=== PATIENT | male | born 1935 | race Caucasian/White ===

== ENCOUNTER 2016-06-26 19:59 | Emergency (ER) | payer MEDICARE ==
[~2016-06-26] VITALS: Ht 177.8 cm; Wt 100.0 kg
[~2016-06-26 19:59] MED LIST: ADLT ASA LOW81 MG PO; ALTOPREV20 MG PO; ARCTIC RUBY OIL PO; AUGMENTIN500TAB PO; CARDURA1 MG PO; CETIRIZ/PSE1 TAB PO; CHOLESTEROL PO; CIPROFLOXACN250 MG PO; CO Q-10100 MG OR; CO Q-10200 M1 PO; COQ10100 MG PO; COUMADIN5 MG OR; COZAAR100 MG PO; COZAAR50 MG PO; DILAUDID 2MG2 MG/TA1 PO; ECOTRIN325 MG OR; FLAXSEED OIL1200 MG PO; FLEXERIL10 MG PO; FLOMAX0.4 M1 PO; FLONASE NASAL50 MCG; FLULAVAL IM; FOLIC ACID400 MC1 PO; GLIPIZIDE ER10 M1 PO; GLIPIZIDE10 MG PO; GLUMETZA1000 MG PO; LORTAB 7.5 PO; MAXZIDE OR; METFORMIN HCL1000 MG PO; METOPROL TAR50 MG OR; MEVACOR20 MG PO; NUCYNTA50 MG OR; OMEGA PO; OMEGA Q PLUS PO; PLAVIX75 MG PO; PRAVACHOL20 MG PO; PREVNAR 13 IM; PROPAFENONE225 MG OR; RESTORIL15 MG PO; TERAZOSIN5 MG PO; TRAMADOL HCL50 MG PO; TRICOR145 MG PO; VITAMIN B-12500 MC1 SL; ZPAK PO; ZYRTEC-D AL1 OR; [UNRECOGNIZED DRUG - OTHER] PO
[2016-06-26] MEDS ORDERED: LASIX 40 MG TAB40 MG PO (21:19)
[2016-06-26] MEDS ORDERED: AUGMENTIN500TAB PO (21:20)
[2016-06-26] MEDS ORDERED: METHYLPRED4 M1 PO (21:20)
[2016-06-26] MEDS ORDERED: GLIPIZIDE10 M2 PO (21:21)
[2016-06-26] MEDS ORDERED: LOPRESSOR 550 MG/TAB PO (21:22)
[2016-06-26] MEDS ORDERED: MICRO-K10 MEQ PO (21:23)
[2016-06-26] MEDS ORDERED: AMANTADINE100 MG PO (21:24)
[2016-06-26 21:32] VITALS: BP 152/74
== END 2016-06-26 21:36 | disposition home or self-care (01) ==
LOC: ED 19:59
DX: K59.00 Constipation, unspecified (principal)

== ENCOUNTER 2016-06-27 14:56 | Observation (INO) | payer OTHER, MEDICARE ==
[~2016-06-27] VITALS: Ht 177.8 cm; Wt 100.9 kg
[~2016-06-27 14:56] MED LIST changes: +AMANTADINE100 MG PO; +GLIPIZIDE10 M2 PO; +LASIX 40 MG TAB40 MG PO; +LOPRESSOR 550 MG/TAB PO; +METHYLPRED4 M1 PO; +MICRO-K10 MEQ PO
[2016-06-27 15:30] LABS: HEMATOCRIT 39.4 % (39.0-50.0); IMMATURE GRANULOCYTES 0.4 % (0.0-1.0); MEAN CELL VOLUME 90.8 fL CALC (80.0-100.0); NEUT# 8.91 thou/uL (1.82-7.42); RED BLOOD COUNT 4.34 mill/uL (4.70-6.10); RED CELL DISTRI WIDTH 12.5 % (11.5-15.5)
[2016-06-27 15:44] LABS: ALBUMIN 4.5 g/dL (3.2-5.0); BILIRUBIN, TOTAL 1.1 mg/dL (0.0-1.4); CALCIUM 9.6 mg/dL (8.4-10.2); CREATININE 2.2 mg/dL (0.7-1.3); POTASSIUM 4.7 mmol/l (3.5-5.1); TOTAL PROTEIN 8.1 g/dL (6.3-8.2)
[2016-06-27 18:20] VITALS: BP 148/83
[2016-06-27 23:34] VITALS: BP 166/70; BP 173/68
[2016-06-28 04:10] VITALS: BP 111/72; BP 128/73
[2016-06-28 05:49] LABS: HEMATOCRIT 39.2 % (39.0-50.0); HEMOGLOBIN 12.6 g/dl (14.0-18.0); IMMATURE GRANULOCYTES 0.7 % (0.0-1.0); MEAN CELL VOLUME 91.4 fL CALC (80.0-100.0); MEAN CORPUSCULAR HGB 29.4 pG CALC (26.0-32.0); MEAN CORPUSCULAR HGB CONC 32.1 g/L CALC (32.0-36.0); NEUT# 6.55 thou/uL (1.82-7.42); RED BLOOD COUNT 4.29 mill/uL (4.70-6.10); RED CELL DISTRI WIDTH 12.7 % (11.5-15.5)
[2016-06-28 06:00] LABS: ALBUMIN 3.8 g/dL (3.2-5.0); BILIRUBIN, TOTAL 0.9 mg/dL (0.0-1.4); CALCIUM 9.3 mg/dL (8.4-10.2); POTASSIUM 4.7 mmol/l (3.5-5.1); TOTAL PROTEIN 6.8 g/dL (6.3-8.2)
[2016-06-28 08:30] VITALS: BP 122/55
[2016-06-28 13:00] VITALS: BP 143/66
[2016-06-28 16:00] VITALS: BP 133/71
[2016-06-28] MEDS ORDERED: LISINOPRIL10 MG PO (17:58)
[2016-06-28] MEDS ORDERED: METOPROL TAR25 MG PO (17:58)
== END 2016-06-28 18:45 | disposition home or self-care (01) | DRG 69 ==
LOC: ENPENDDIS → ED 14:56 → ED-I 16:10 → ED 16:15 → MS2 16:16
PROVIDERS: Emergency Medicine; ADMIT Internal Medicine Geriatric Medicine; ATTEND Internal Medicine Geriatric Medicine
DX: G45.9 Transient cerebral ischemic attack, unspecified (principal); I13.0 Hypertensive heart and chronic kidney disease with heart failure and stage 1 through stage 4 chronic kidney disease, or unspecified chronic kidney disease; E11.22 Type 2 diabetes mellitus with diabetic chronic kidney disease; I50.9 Heart failure, unspecified; E11.69 Type 2 diabetes mellitus with other specified complication; N18.9 Chronic kidney disease, unspecified; I25.10 Atherosclerotic heart disease of native coronary artery without angina pectoris; M19.90 Unspecified osteoarthritis, unspecified site; E78.5 Hyperlipidemia, unspecified; F40.240 Claustrophobia; Z95.1 Presence of aortocoronary bypass graft

== ENCOUNTER 2017-08-29 16:00 | Observation (INO) | payer MEDICARE ==
[~2017-08-29] VITALS: Ht 170.2 cm; Wt 104.8 kg
[~2017-08-29 16:00] MED LIST changes: +LISINOPRIL10 MG PO; +METOPROL TAR25 MG PO
[2017-08-29 17:02] VITALS: BP 137/64
[2017-08-29 17:11] VITALS: BP 138/64
[2017-08-29 18:11] LABS: HEMATOCRIT 35.4 % (39.0-50.0); HEMOGLOBIN 11.3 g/dl (14.0-18.0); IMMATURE GRANULOCYTES 0.3 % (0.0-1.0); MEAN CELL VOLUME 94.4 fL CALC (80.0-100.0); MEAN CORPUSCULAR HGB 30.1 pG CALC (26.0-32.0); MEAN CORPUSCULAR HGB CONC 31.9 g/L CALC (32.0-36.0); NEUT# 3.82 thou/uL (1.82-7.42); RED BLOOD COUNT 3.75 mill/uL (4.70-6.10); RED CELL DISTRI WIDTH 12.9 % (11.5-15.5)
[2017-08-29 18:32] LABS: CREATININE 2.7 mg/dL (0.7-1.3); POTASSIUM 4.6 mmol/l (3.5-5.1)
[2017-08-29 18:40] VITALS: BP 157/84
[2017-08-29 23:44] LABS: URINE BILIRUBIN - DIPSTICK NEGATIVE (NEGATIVE); URINE BLOOD DIPSTICK TRACE-LYSED (NEGATIVE); URINE CLARITY CLEAR; URINE COLOR YELLOW; URINE GLUCOSE - DIPSTICK 100 mg/dL (NEGATIVE); URINE KETONE NEGATIVE (NEGATIVE); URINE LEUK ESTERASE NEGATIVE (NEGATIVE); URINE NITRITE - DIPSTICK NEGATIVE (Negative); URINE PH 6.5 (4.5-8.0); URINE PROTEIN - DIPSTICK TRACE mg/dL (NEG-TRACE)
[2017-08-30] VITALS (7 sets, daily range): BP systolic 118–144; BP diastolic 66–81
[2017-08-30 05:23] LABS: HEMATOCRIT 34.3 % (39.0-50.0); IMMATURE GRANULOCYTES 0.3 % (0.0-1.0); MEAN CORPUSCULAR HGB 30.5 pG CALC (26.0-32.0); MEAN CORPUSCULAR HGB CONC 32.1 g/L CALC (32.0-36.0); NEUT# 3.83 thou/uL (1.82-7.42); RED BLOOD COUNT 3.61 mill/uL (4.70-6.10); RED CELL DISTRI WIDTH 12.8 % (11.5-15.5)
[2017-08-30 05:25] LABS: BILIRUBIN, TOTAL 0.6 mg/dL (0.0-1.4); CREATININE 2.5 mg/dL (0.7-1.3); POTASSIUM 4.6 mmol/l (3.5-5.1); TOTAL PROTEIN 6.2 g/dL (6.3-8.2)
[2017-08-30 05:28] LABS: ALBUMIN 3.4 g/dL (3.2-5.0)
[2017-08-30] MEDS ORDERED: ADULT ASPIRIN E81 MG PO (12:16)
[2017-08-30] MEDS ORDERED: CoQ10 PO (12:27)
[2017-08-30] MEDS ORDERED: TRICOR145 MG PO (12:29)
[2017-08-30] MEDS ORDERED: ATORVASTATIN CA10 MG PO (12:31)
[2017-08-30] MEDS ORDERED: TAMSULOSIN0.4 MG PO (12:34)
[2017-08-30] MEDS ORDERED: PRANDIN1 MG PO (12:36)
[2017-08-30] MEDS ORDERED: JANUVIA100 MG PO (12:39)
[2017-08-30] MEDS ORDERED: ZESTRIL10 M1 PO (12:41)
[2017-08-30 14:20] LABS: CREATININE 2.6 mg/dL (0.7-1.3); POTASSIUM 4.7 mmol/l (3.5-5.1)
[2017-08-30] MEDS ORDERED: LOPRESSOR 550 MG/TAB PO (17:35)
== END 2017-08-30 18:15 | disposition home or self-care (01) ==
LOC: MS2 16:00
PROVIDERS: ADMIT Internal Medicine Geriatric Medicine; ATTEND Internal Medicine Geriatric Medicine
DX: N99.0 Postprocedural (acute) (chronic) kidney failure (principal); N17.9 Acute kidney failure, unspecified; I13.0 Hypertensive heart and chronic kidney disease with heart failure and stage 1 through stage 4 chronic kidney disease, or unspecified chronic kidney disease; I50.9 Heart failure, unspecified; E11.22 Type 2 diabetes mellitus with diabetic chronic kidney disease; N18.9 Chronic kidney disease, unspecified; I25.10 Atherosclerotic heart disease of native coronary artery without angina pectoris; E78.5 Hyperlipidemia, unspecified; F41.9 Anxiety disorder, unspecified; F32.9 Major depressive disorder, single episode, unspecified; M19.90 Unspecified osteoarthritis, unspecified site; E11.69 Type 2 diabetes mellitus with other specified complication; E11.42 Type 2 diabetes mellitus with diabetic polyneuropathy; Y84.0 Cardiac catheterization as the cause of abnormal reaction of the patient, or of later complication, without mention of misadventure at the time of the procedure; Z96.652 Presence of left artificial knee joint; Z95.5 Presence of coronary angioplasty implant and graft; Z95.1 Presence of aortocoronary bypass graft

== ENCOUNTER 2018-01-14 19:00 | Emergency (ER) | payer MEDICARE ==
[~2018-01-14] VITALS: Ht 170.2 cm; Wt 91.8 kg
[~2018-01-14 19:00] MED LIST changes: +ADULT ASPIRIN E81 MG PO; +ATORVASTATIN CA10 MG PO; +CoQ10 PO; +JANUVIA100 MG PO; +PRANDIN1 MG PO; +TAMSULOSIN0.4 MG PO; +ZESTRIL10 M1 PO
[2018-01-14] MEDS ORDERED: LISINOPRIL20 MG PO (19:25)
[2018-01-14 19:57] LABS: ALBUMIN 4.3 g/dL (3.2-5.0); BILIRUBIN, TOTAL 1.1 mg/dL (0.0-1.4); CREATININE 2.5 mg/dL (0.7-1.3); TOTAL PROTEIN 7.9 g/dL (6.3-8.2)
[2018-01-14 19:58] LABS: HEMATOCRIT 38.3 % (39.0-50.0); HEMOGLOBIN 12.3 g/dl (14.0-18.0); IMMATURE GRANULOCYTES 0.6 % (0.0-5.0); MEAN CELL VOLUME 91.8 fL CALC (80.0-100.0); MEAN CORPUSCULAR HGB 29.5 pG CALC (26.0-32.0); MEAN CORPUSCULAR HGB CONC 32.1 g/L CALC (32.0-36.0); NEUT# 4.33 thou/uL (1.82-7.42); RED BLOOD COUNT 4.17 mill/uL (4.70-6.10); RED CELL DISTRI WIDTH 14.3 % (11.5-15.5)
[2018-01-14 21:27] VITALS: BP 119/78
== END 2018-01-14 21:28 | disposition short-term general hospital (02) ==
LOC: ED 19:00
PROVIDERS: Family Medicine
DX: I21.4 Non-ST elevation (NSTEMI) myocardial infarction (principal); R07.9 Chest pain, unspecified; I10 Essential (primary) hypertension; E11.9 Type 2 diabetes mellitus without complications; Z95.0 Presence of cardiac pacemaker; I25.810 Atherosclerosis of coronary artery bypass graft(s) without angina pectoris
CPT/HCPCS: J1650

== ENCOUNTER → 2018-05-29 | Outpatient (REF) | payer MEDICARE ==
[~2018-05-29] MED LIST changes: +ATIVAN1 MG PO; +BRILINTA60 MG PO; +EFFER-K25 MEQ PO; +FUROSEMIDE20 MG PO; +ISOSORBIDE MONO30 MG PO; +K-DUR/KLOR-CON20 MEQ PO; +LISINOPRIL20 MG PO; +METO25TAB PO; +METOLAZONE2.5 MG PO; +TRESIBA FL100 UNIT/M SC; +XARELTO10 MG PO
[2018-05-29 11:15] LABS: HEMATOCRIT 38.4 % (39.0-50.0); HEMOGLOBIN 11.7 g/dl (14.0-18.0); MEAN CELL VOLUME 92.3 fL CALC (80.0-100.0); MEAN CORPUSCULAR HGB 28.1 pG CALC (26.0-32.0); MEAN CORPUSCULAR HGB CONC 30.5 g/L CALC (32.0-36.0); RED BLOOD COUNT 4.16 mill/uL (4.70-6.10); RED CELL DISTRI WIDTH 14.9 % (11.5-15.5)
[2018-05-29 11:40] LABS: ALBUMIN 4.1 g/dL (3.2-5.0); BILIRUBIN, TOTAL 1.4 mg/dL (0.0-1.4); CHOLESTEROL HDL RATIO 4.2 (<4.4 (CALC)); CREATININE 1.7 mg/dL (0.7-1.3); POTASSIUM 4.2 mmol/l (3.5-5.1); TOTAL PROTEIN 7.2 g/dL (6.3-8.2)
[2018-05-29 12:10] LABS: TSH, 3RD GENERATION 1.92 uIU/mL (0.47 - 4.68)
== END | disposition home or self-care (01) ==
LOC: LAB 10:13
PROVIDERS: ATTEND Nurse Practitioner
DX: E11.69 Type 2 diabetes mellitus with other specified complication (principal); E78.2 Mixed hyperlipidemia; I10 Essential (primary) hypertension; N18.9 Chronic kidney disease, unspecified; Z12.5 Encounter for screening for malignant neoplasm of prostate

== ENCOUNTER 2018-05-30 14:00 | Outpatient (RCR) | payer MEDICARE ==
--- NOTE | 2018-05-23 14:23 | NUR ---
S/O: MOLLY ANGULO is a 83 year old Male who presented to cardiac/pulmonary consult. His past medical history and current medications and treatment were discussed. A/P: All medications in patient's chart were viewed. Corrections were needed including adding Tresiba, Metolazone, and Lorazepam to his medication list. Patient has good understanding of prescribed medications. The patient had the following questions or concerns: What can happen if he were to take too much of his diuretic medications The patient indicated that he has experienced the following side effects: None Potential side effects were discussed such as: Dizziness/ Orthostasis, Symptoms of low blood sugar, Symptoms of electrolyte imbalance The patient was instructed to contact pharmacy if he had further questions at a next visit.
== END 2018-05-30 15:00 | disposition home or self-care (01) ==
LOC: CR 14:00
PROVIDERS: ATTEND Internal Medicine
DX: D64.9 Anemia, unspecified (principal); I25.10 Atherosclerotic heart disease of native coronary artery without angina pectoris

== ENCOUNTER 2018-07-14 16:49 | Emergency (ER) | payer MEDICARE ==
[~2018-07-14] VITALS: Ht 177.8 cm; Wt 90.0 kg
[2018-07-14] MEDS ORDERED: MEDDOSEPAK PO (18:11)
[2018-07-14] MEDS ORDERED: PERCOCET 10/31 COMBO PO (18:11)
[2018-07-14 18:25] VITALS: BP 131/74
== END 2018-07-14 18:25 | disposition home or self-care (01) ==
LOC: ED 16:49
DX: M25.531 Pain in right wrist (principal); I11.0 Hypertensive heart disease with heart failure; I50.9 Heart failure, unspecified; I25.10 Atherosclerotic heart disease of native coronary artery without angina pectoris; E11.9 Type 2 diabetes mellitus without complications

== ENCOUNTER 2018-11-20 00:27 | Inpatient (IN) | payer MEDICARE ==
[~2018-11-20] VITALS: Ht 177.8 cm; Wt 99.9 kg
[~2018-11-20 00:27] MED LIST changes: +MEDDOSEPAK PO; -METO25TAB PO; +PERCOCET 10/31 COMBO PO
--- NOTE | 2018-11-20 00:30 | NUR ---
PT WHEELED TO ROOM 9 FOR TRIAGE
--- NOTE | 2018-11-20 00:31 | NUR ---
PT. WITH C/O FEELING LIKE HE HAS A SINUS INFECTION STARTING THIS AM. WITH QUINONEZ AND PRESSURE.
[2018-11-20] MEDS ORDERED: PLAVIX75 MG PO (00:53)
--- NOTE | 2018-11-20 01:25 | NUR ---
PO TYLENOL AND PO MOTRIN FOR TEMP. 101.3 PER .
[2018-11-20 01:35] LABS: HEMATOCRIT 40.4 % (39.0-50.0); HEMOGLOBIN 12.8 g/dl (14.0-18.0); IMMATURE GRANULOCYTES 0.2 % (0.0-5.0); MEAN CELL VOLUME 89.8 fL CALC (80.0-100.0); MEAN CORPUSCULAR HGB 28.4 pG CALC (26.0-32.0); MEAN CORPUSCULAR HGB CONC 31.7 g/L CALC (32.0-36.0); NEUT# 7.7 thou/uL (1.82-7.42); RED BLOOD COUNT 4.5 mill/uL (4.70-6.10); RED CELL DISTRI WIDTH 14.4 % (11.5-15.5); URINE BILIRUBIN - DIPSTICK NEGATIVE (NEGATIVE); URINE BLOOD DIPSTICK SMALL (NEGATIVE); URINE COLOR YELLOW; URINE GLUCOSE - DIPSTICK NEGATIVE (NEGATIVE); URINE KETONE NEGATIVE (NEGATIVE); URINE NITRITE - DIPSTICK NEGATIVE (Negative); URINE PROTEIN - DIPSTICK NEGATIVE (NEG-TRACE); URINE UROBILINOGEN - DIPSTICK 0.2 E.U./dL (0.2)
[2018-11-20 01:45] LABS: URINE LEUK ESTERASE MODERATE (NEGATIVE)
[2018-11-20 01:52] LABS: ALBUMIN 4.5 g/dL (3.2-5.0); BILIRUBIN, TOTAL 2.1 mg/dL (0.0-1.4); CREATININE 1.9 mg/dL (0.7-1.3); POTASSIUM 4.2 mmol/l (3.5-5.1); TOTAL PROTEIN 7.9 g/dL (6.3-8.2)
[2018-11-20 01:55] LABS: URINE RBC 0-2 RBC/hpf (0-5)
[2018-11-20 01:56] LABS: URINE BACTERIA RARE hpf; URINE SQUAMOUS EPITHELIAL CELL RARE EPI/hpf (0-FEW); URINE WBC 20-50 WBC/hpf (0-5)
--- NOTE | 2018-11-20 02:05 | NUR ---
IV ABT. GIVEN PER MD ORDER.
--- NOTE | 2018-11-20 02:22 | NUR ---
IN ROOM TO DISCUSS CLINICAL FINDINGS WITH PT. VERBALIZED UNDERSTANDING.
--- NOTE | 2018-11-20 02:51 | NUR ---
IVF STARTED PER MD ORDER.
--- NOTE | 2018-11-20 03:13 | NUR ---
Admission Note Report Given to: MESERET NÚÑEZ Transported by: Wheelchair X Stretcher Transported with: X Nurse Transporter X Patent IV O2 X Wellness Nurse
--- NOTE | 2018-11-20 03:22 | NUR ---
PT. TO [facility] FLOOR VIA STRETCHER, NO C/O.
[2018-11-20 04:46] VITALS: BP 100/58
--- NOTE | 2018-11-20 05:10 | NUR ---
PATIENT ADMITTED FROM ER VIA STRETCHER WITH ER STAFF IN ATTENDANCE. PATIENT ASSIST TO STANDING SCALE AND THEN TO BED. UNSTEADY ON HIS FEET. PATIENT IS BEING ADMITTED FOR UTI AND PNEUMONIA. PATIENT IS RESIDENT AT [facility]. PATIENT IS AWAKE ALERT AND ORIENTEDX3.-STATES THAT HE HAD 2 FALLS YESTERDAY AT [facility]. PATIENT WITH IV SITE TO LEFT AC WITH IVF NS PATENT AND INFUSING ORDERED. C/O FEELING ACHEY ALL OVER. TELE MONITOR IN PLACE. PATIENT VOICED CONCERNS OVER [facility] THAT HE IS CURRENTLY STAYING AT. CASE MANAGMENT CONSULT OBTAINED. PATIENT OFFERED POFLUIDS. ORIENTED TO ROOM AND SURROUNDINGS. INSTRUCTED PATIENT ON USE OF NURSE CALL LIGHT SYSTEM, TV REMOTE AND PHONE. SAFETY PRECAUTIONS REVIEWED WITH PATIENT. CALL LIGHT IN REACH. WILL CONT TO MONITOR.
--- NOTE | 2018-11-20 07:15 | NUR ---
REPORT RECEIVED FROM NIYA CARL;PT APPEARS TO BE SLEEPING IN LEFT SIDE LAYING POSITION;RESPIRATIONS EVEN AND UNLABORED ON RA;NO S/S OF DISTRESS NOTED;TELE MONITORING IN PLACE;IV FLUIDS INFUSING TO LAC WITH EASE;ALL SAFETY PRECAUTIONS NOTED WITH BED IN THE LOWEST POSITION AND CALL LIGHT IN REACH;WILL CONTINUE TO MONITOR
--- NOTE | 2018-11-20 08:40 | NUR ---
PT RESTING IN HIGH FOWLERS POSITION WATCHING TV, A&O X3;VS OBTAINED AND ASSESSMENT COMPLETED;PT DENIES ANY CURRENT PAIN OR DISCOMFORTS,PAIN SCALE AND REPORTING EDUCATED;RESPIRATIONS EVEN AND UNLABORED ON RA, CLEAR/CRACKLES TO LUNG SOUNDS;ABDOMEN DISTENDED/SOFT ON PALPATION AND ACTIVE IN ALL 4 QUADRANTS;STRONG PEDAL PULSES;SKIN INTACT;TELE MONITORING IN PLACE;#20G TO LAC INFUSING NS @ 100ML/HR, SITE APPEARS HEALTHY;ACCUCHECK 136;PT DENIES ANY ADDITIONAL NEEDS AT THIS TIME AND IS ENCOURAGED TO CALL FOR ASSISTANCE IF NEEDED;FALL PRECAUTIONS IN PLACE WITH CALL LIGHT IN REACH;WILL CONTINUE TO MONITOR
[2018-11-20 08:42] VITALS: BP 114/62
--- NOTE | 2018-11-20 09:51 | NUR ---
AT BEDSIDE DISCUSSING POC.
--- NOTE | 2018-11-20 11:20 | NUR ---
PT RESTING IN SEMI FOWLERS POSITION;RESPIRATIONS EVEN AND UNLABORED ON RA;PT DENIES ANY CURRENT PAIN OR DISCOMFORTS;IV FLUIDS INFUSING TO LAC AT KVO PER MD ORDERS;TELE MONITORING IN PLACE;FLAKO Chavez, PT COVERED WITH SLIDING SCALE NOVOLOG PER ORDER;PT REPORTS THAT FROM HERE ON OUT HE IS GOING TO REFUSE LUNCH FLAKO, PT RIGHTS REVIEWED;PT DENIES ANY ADDITIONAL NEEDS AT THIS TIME AND IS ENCOURAGED TO CALL FOR ASSISTANCE IF NEEDED;CALL LIGHT IN REACH;WILL CONTINUE TO MONITOR
[2018-11-20 11:55] VITALS: BP 117/73
--- NOTE | 2018-11-20 15:00 | NUR ---
PT RESTING IN SEMI FOWLERS POSITION;RESPIRATIONS EVEN AND UNLABORED ON RA;PT DENIES ANY CURRENT PAIN OR DISCOMFORTS;IV FLUIDS INFUSING @ KVO TO LAC;CURRENT TEMP 100.7, BLANKETS REMOVED,AC LOWERED AND PT MEDICATED WITH PRN TYLENOL 650MG PO AT THIS TIME;TELE MONITORING IN PLACE;PT DENIES ANY ADDITIONAL NEEDS AND IS ENCOURAGED TO CALL FOR ASSISTANCE IF NEEDED;SAFETY PRECAUTIONS REMAIN IN PLACE WITH CALL LIGHT IN REACH;WILL CONTINUE TO MONITOR
[2018-11-20 15:15] VITALS: BP 120/73
--- NOTE | 2018-11-20 15:59 | NUR ---
TEMP RE-CHECK 99.6
--- NOTE | 2018-11-20 19:30 | NUR ---
PATIENT RESTING IN BED WITH HOB ELEVATED AND EYES CLOSED. APPEARS SLEEPING AT THIS TIME. TELE MONITOR IN PLACE. IVF PATENT AND INFUSING AT KVO RATE TO LEFT AC. SITE REMAINS HEALTHY AT THIS TIME. CALL LIGHT IN REACH. WILL CONT TO MONITOR.
--- NOTE | 2018-11-20 19:30 | NUR ---
PATIENT RESTING IN BED AT THIS TIME WITH HOB ELEVATED.APPEARS SLEEPING WITH EYES CLOSED. TELE MONITOR IN PLACE. IV SITE TO LAC INTACT WITH NS PATENT AND INFUSING AT KVO RATE. SITE APPEARS HEALTHY AT THIS TIME. CALL LIGHT IN REACH. WILL CONT TO MONITOR.
[2018-11-20 20:03] VITALS: BP 117/68
--- NOTE | 2018-11-20 20:45 | NUR ---
PATIENT REFUSED ACCUCHECK AT THIS TIME. NURSE INFORMED.
--- NOTE | 2018-11-20 21:00 | NUR ---
PATIENT RESTING IN BED AT THIS TIME-AWAKE ALERT AND ORIENTEDX3. PATIENT REFUSING ACCU-CHECK. REFUSING ANY INSULIN COVERAGE. BLE WITH 3+ PITTING EDEMA. ENCOURAGED ELEVATION OF LE WHILE IN BED. SAFETY PRECAUTIONS REINFORCED. CALL LIGHT IN REACH. WILL CONT TO MONITOR.
--- NOTE | 2018-11-20 23:35 | NUR ---
PATIENT ASSISTED OOB TO STAND AND VOID 150CC RAFAL URINE. UNSTEADY ON FEET. ASSISTED BACK TO BED. SOB WITH EXHERSION. BLE ELEVATED ON PILLOWS. FEET REMAIN SWOLLEN. TELE MONITOR IN PLACE. IVF PATENT AND INFUSING VIS LAC AT KVO RATE. SAFETY PRECAUTIONS REINFORCED. CALL LIGHT IN REACH. WILL CONT TO MONITOR.
[2018-11-21] VITALS: BP 141/79
--- NOTE | 2018-11-21 02:28 | NUR ---
PATIENT RESTING IN BED WITH HOB ELEVATED-C/O THAT HE CAN'T SLEEP. PATIENT MEDICATED WITH TYLENOL 650MG PO FOR HEADACHE. PATIENT ADVISED THATHE DOES HAVE SLEEPING MEDS ORDERED BUT HE NEEDS TO ASK FOR THEM BEFORE 0100 IN ORDER TO RECIEVE THEM. VERBALIZES UNDERSTANDING.TELE MONITOR IN PLACE. URINAL EMPTIED FOR 200CC OF RAFAL URINE. SAFETY PRECAUTIONS REINFORCED. CALL LIGHT IN REACH. WILL CONT TO MONITOR.
--- NOTE | 2018-11-21 04:32 | NUR ---
PATIENT RESTING IN BED-CONT TO BE RESTLESS AND UNABLE TO SLEEP. TELE MONITOR IN PLACE. IVF PATENT AND INFUSING AT KVO RATE TO LAC SITE. SITE REMAINS HEALTHY. CALL LIGHT IN REACH. WILL CONT TO MONITOR.
[2018-11-21 04:53] LABS: HEMATOCRIT 36.1 % (39.0-50.0); HEMOGLOBIN 11.4 g/dl (14.0-18.0); MEAN CELL VOLUME 89.6 fL CALC (80.0-100.0); MEAN CORPUSCULAR HGB 28.3 pG CALC (26.0-32.0); MEAN CORPUSCULAR HGB CONC 31.6 g/L CALC (32.0-36.0); RED BLOOD COUNT 4.03 mill/uL (4.70-6.10); RED CELL DISTRI WIDTH 14.4 % (11.5-15.5)
[2018-11-21 05:02] VITALS: BP 112/62
[2018-11-21 05:12] LABS: CREATININE 1.9 mg/dL (0.7-1.3); POTASSIUM 3.8 mmol/l (3.5-5.1)
--- NOTE | 2018-11-21 07:05 | NUR ---
REPORT RECEIVED FROM NIYA CARL;PT APPEARS TO BE SLEEPING IN SEMI FOWLERS POSITION;NO S/S OF DISTRESS NOTED;RESPIRATIONS EVEN AND UNLABORED ON RA;IV FLUIDS INFUSING TO LAC WITH EASE;TELE MONITORING IN PLACE;ACCUCHECK 115, NO COVERAGE NEEDED AT THIS TIME;ALL SAFETY PRECAUTIONS REINFORCED WITH BED IN THE LOWEST POSITION AND CALL LIGHT IN REACH;WILL CONTINUE TO MONITOR
--- NOTE | 2018-11-21 08:20 | NUR ---
PT RESTING AT BEDSIDE, A&O X4;VS OBTAINED AND ASSESSMENT COMPLETED;PT DENIES ANY CURRENT PAIN OR DISCOMFORTS, PAIN SCALE AND REPORTING EDUCATED;RESPIRATIONS SHALLOW ON RA, CLEAR/CRACKLE LUNG SOUNDS;ABDOMEN DISTENDED/SOFT ON PALPATION AND ACTIVE IN ALL 4 QUADRANTS;WEAK PEDAL PULSES WITH +3 EDEMA NOTED TO BLE, ENCOURAGED ELEVATION;SKIN INTACT;TELE MONITORING IN PLACE;#20G TO LAC INFUSING NS @ 10ML/HR, ABX HUNG AT THIS TIME;PT VOIDED 150CC OF RAFAL/CLEAR URINE;PT DENIES ANY ADDITIONAL NEEDS AT THIS TIME AND IS ENCOURAGED TO CALL FOR ASSISTANCE IF NEEDED;FALL PRECAUTIONS IN PLACE WITH BED IN THE LOWEST POSITION AND CALL LIGHT IN REACH;WILL CONTINUE TO MONITOR
[2018-11-21 08:21] VITALS: BP 119/71
--- NOTE | 2018-11-21 09:17 | NUR ---
AT BEDSIDE DISCUSSING POC.
--- NOTE | 2018-11-21 09:33 | NUR ---
PT TRANSFERRED TO [facility] IN STABLE CONDITION VIA WHEELCHAIR ACCOMPANIED BY VOLUNTEER.
--- NOTE | 2018-11-21 09:49 | NUR ---
PT RETURNED TO MED/SURG ROOM 273 IN STABLE CONDITION VIA WHEELCHAIR ACCOMPANIED BY VOLUNTEER.
--- NOTE | 2018-11-21 10:35 | NUR ---
PT REFUSED LUNCH ACCUCHECK.
--- NOTE | 2018-11-21 10:45 | NUR ---
PT REFUSED ACCU CHECK FOR 11:00 AM. NOTIFIED BELA BILL.
[2018-11-21 11:00] VITALS: BP 125/86
--- NOTE | 2018-11-21 11:25 | NUR ---
PT OOB RESTING IN RECLINER;RESPIRATIONS EVEN AND UNLABORED ON RA;PT DENIES ANY CURRENT PAIN OR DISCOMFORTS;TELE MONITORING IN PLACE;IV FLUIDS INFUSING TO LAC WITH EASE;PT DENIES ANY ADDITIONAL NEEDS AT THIS TIME AND IS ENCOURAGED TO CALL FOR ASSISTANCE IF NEEDED;FALL PRECAUTIONS IN PLACE WITH CALL LIGHT IN REACH;WILL CONTINUE TO MONITOR
--- NOTE | 2018-11-21 15:15 | NUR ---
PT OOB RESTING IN RECLINER;RESPIRATIONS EVEN AND UNLABORED ON RA;PT DENIES ANY CURRENT PAIN OR DISCOMFORTS;IV FLUIDS CONTINUE TO INFUSE TO LAC PER ORDER;TELE MONITORING IN PLACE;ASSESSMENT REMAINS UNCHANGED;SHOWER TO BE PROVIDED BY PT REQUEST;PT INSTRUCTED TO CALL FOR ASSISTANCE IF NEEDED;FALL PRECAUTIONS IN PLACE WITH CALL LIGHT IN REACH;WILL CONTINUE TO MONITOR
[2018-11-21 16:04] VITALS: BP 101/56
[2018-11-21 19:11] VITALS: BP 123/78
--- NOTE | 2018-11-21 19:34 | NUR ---
REPORT FROM FLY CRAMER. PT SITTING UP IN RECLINER AT BEDSIDE. VISITOR PRESENT IN ROOM. BLE EDEMA NOTED. NO RESPIRATORY DISTRESS NOTED. PT DENIES ANY PAIN OR DISCOMFORT. IV SITE APPEARS HEALTHY. DISCUSSED POC. PT VERBALIZED UNDERSTANDING. NO CURRENT WANTS OR NEEDS. CALL LIGHT WITHIN REACH. WILL CONTINUE TO MONITOR.
--- NOTE | 2018-11-21 23:45 | NUR ---
PT RESTING IN BED WITH EYES CLOSED. NO DISTRESS NOTED. CALL LIGHT WITHIN REACH. WILL CONTINUE TO MONITOR.
[2018-11-22] VITALS (7 sets, daily range): BP systolic 104–133; BP diastolic 61–81
--- NOTE | 2018-11-22 03:50 | NUR ---
PT ASSISTED TO RECLINER AT THIS TIME UPON REQUEST. NO DISTRESS NOTED. PT DENIES ANY PAIN OR DISCOMFORT. CALL LIGHT WITHIN REACH. WILL CONTINUE TO MONITOR.
[2018-11-22 05:10] LABS: HEMATOCRIT 40.4 % (39.0-50.0); HEMOGLOBIN 12.8 g/dl (14.0-18.0); MEAN CELL VOLUME 89.2 fL CALC (80.0-100.0); MEAN CORPUSCULAR HGB 28.3 pG CALC (26.0-32.0); MEAN CORPUSCULAR HGB CONC 31.7 g/L CALC (32.0-36.0); RED BLOOD COUNT 4.53 mill/uL (4.70-6.10); RED CELL DISTRI WIDTH 14.2 % (11.5-15.5)
[2018-11-22 05:30] LABS: CREATININE 1.8 mg/dL (0.7-1.3); POTASSIUM 3.7 mmol/l (3.5-5.1)
--- NOTE | 2018-11-22 07:05 | NUR ---
REPORT RECEIVED FROM BELA BURT;PT RESTING AT BEDSIDE, A&O X3;INTRODUCED SELF TO PT AND POC DISCUSSED;RESPIRATIONS EVEN AND UNLABORED ON RA;PT DENIES ANY CURRENT PAIN OR NEEDS;TELE MONITORING IN PLACE;IV FLUIDS INFUSING WITH EASE TO LAC;PT DENIES ANY ADDITIONAL NEEDS AT THIS TIME;FALL PRECAUTIONS IN PLACE WITH BED IN THE LOWEST POSITION AND CALL LIGHT IN REACH;WILL CONTINUE TO MONITOR
--- NOTE | 2018-11-22 08:40 | NUR ---
PT OOB RESTING IN RECLINER, A&O X3;VS OBTAINED AND ASSESSMENT COMPLETED;PT DENIES ANY CURRENT PAIN OR DISCOMFORTS, PAIN SCALE AND REPORTING EDUCATED;RESPIRATIONS EVEN AND UNLABORED ON RA, CLEAR/CRACKLES NOTED TO LUNGS;ABDOMEN DISTENDED/SOFT ON PALPATION AND ACTIVE IN ALL 4 QUADRANTS;WEAK PEDAL PULSES WITH +2 EDEMA NOTED, ENCOURAGED ELEVATION OF BLE;#20G TO LAC INFUSING NS @ 10ML/HR, SITE APPEARS HEALTHY;TELE MONITORING IN PLACE;ACCUCHECK 179, PT COVERED WITH SLIDING SCALE NOVOLOG PER ORDER;PT DENIES ANY ADDITIONAL NEEDS AT THIS TIME AND IS ENCOURAGED TO CALL FOR ASSISTANCE IF NEEDED;CALL LIGHT IN REACH;WILL CONTINUE TO MONITOR
--- NOTE | 2018-11-22 10:56 | NUR ---
AT BEDSIDE DISCUSSING POC.
--- NOTE | 2018-11-22 11:00 | NUR ---
PT REFUSED LUNCH ACCUCHECK.
[2018-11-22] MEDS ORDERED: DOXYCYCL HYC100 MG PO (11:07)
[2018-11-22] MEDS ORDERED: AUGMENTIN500TAB PO (11:07)
--- NOTE | 2018-11-22 13:00 | NUR ---
PT RESTING IN SEMI FOWLERS POSITION;RESPIRATIONS EVEN AND UNLABORED ON RA;PT DENIES ANY CURRENT PAIN;PT CRYING TO WRITTER ABOUT HOW "I HATE [place] AND DOES NOT WANT TO GO BACK". PT RE-ASSURED AND CASE MANAGEMENT TO BE NOTIFIED;IV FLUIDS INFUSING TO LAC WITH EASE PER ORDER;TELE MONITORING IN PLACE;TEMP RE-CHECK 99.6, BLANKETS REMAIN REMOVED AND AC LOWERED;PT DENIES ANY ADDITIONAL NEEDS AT THIS TIME;ENCOURAGED TO CALL FOR ASSISTANCE IF NEEDED;CALL LIGHT IN REACH;WILL CONTINUE TO MONITOR
--- NOTE | 2018-11-22 13:40 | NUR ---
PT RESTING IN SEMI FOWLERS POSITION;RESPIRATIONS EVEN AND UNLABORED ON RA;PT DENIES ANY CURRENT PAIN OR DISCOMFORTS;CURRENT TEMP 100.5, PT MEDICATED WITH PRN TYLENOL 650MG PO;IV FLUIDS INFUSING WITH EASE, ABX HUNG AT THIS TIME;TELE MONITORING IN PLACE;ENCOURAGED TO CALL FOR ASSISTANCE IF NEEDED;CALL LIGHT IN REACH;WILL CONTINUE TO MONITOR
--- NOTE | 2018-11-22 14:09 | NUR ---
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 O: VS: KY=936/81 mmHg , P=69bpm, RR=18bpm ,T=100.5 F W: 99.422KG, HT=70IN, Scr=1.8mg/dL, CrCl= 32.1ML/MIN A: Blood culture PRELIMINARY SHOWS NO GROWTH. Urine culture FINAL SHOWS 20,000 CFU/ML OF MIXED GRAM POSITIVE NADJA. P: Patient is on AZITHROMYCIN 500MG IV Q24H, CEFTRIAXONE 1G IV Q24H. Vancomycin ordered for pharmacy to dose. Start Vancomycin 1250MG IV Q24H. Vancomycin trough is drawn before the 4th dose on 11/25/18 @1230. Vancomycin goal trough is between 15-20 mcg/ml. Pharmacy will follow and or advise on antibiotics use as needed.
--- NOTE | 2018-11-22 14:29 | NUR ---
CALLED AND SPOKE TO BENJAMIN FROM DR. HERNANDEZ REGARDING DR. GREEN CONSULTATION BECAUSE HE IS IN THE OFFICE TODAY. THEY TOLD ME THEY WOULD LET HIM KNOW ABOUT THE CONSULTATION FOR THIS PATIENT.
--- NOTE | 2018-11-22 14:37 | NUR ---
TEMP RE-CHECK 100.0
--- NOTE | 2018-11-22 15:35 | NUR ---
PT RESTING AT BEDSIDE WITH JANES NGUYEN AT BEDSIDE OBTAINING VS,CURRENT TEMP 98.1;RESPIRATIONS EVEN AND UNLABORED ON RA;PT DENIES ANY CURRENT PAIN OR DISCOMFORTS;TELE MONITORING IN PLACE;IV FLUIDS INFUSING TO LAC WITH EASE;ASSESSMENT UNCHANGED AT THIS TIME;RE-ENCOURAGED ELEVATION OF BLE, PT VERBALIZES UNDERSTANDING;CALL LIGHT IN REACH;WILL CONTINUE TO MONITOR
--- NOTE | 2018-11-22 23:11 | NUR ---
PT RESTING IN BED WITH EYES CLOSED. NO DISTRESS NOTED. AFEBRILE AT THIS TIME. CALL LIGHT WITHIN REACH. WILL CONTINUE TO MONITOR.
[2018-11-23 04:05] VITALS: BP 127/77
--- NOTE | 2018-11-23 04:53 | NUR ---
PT REFUSED LABS TO BE DRAWN, VOLUNTEER SERVICES SUPERVISOR ATTEMPTED TO EDUCATED PT AT THIS TIME AND PT CONTINUED TO REFUSE.
[2018-11-23 08:00] VITALS: BP 132/73
[2018-11-23 10:36] VITALS: BP 118/76
--- NOTE | 2018-11-23 10:45 | NUR ---
PT REFUSED ACCU CHECK AT 11:00 AM. NOTIFIED NIYA DAS.
--- NOTE | 2018-11-23 12:00 | NUR ---
PT SEEN THIS MORNING BY DR FAJARDO, TO BE DISCHARGED WHEN POSSIBLE. PT REMAINS AFEBRILE. NO DISTRESS NOTED.
--- NOTE | 2018-11-23 12:44 | NUR ---
PT SEEN AT REST IN THE STRETCHER, IS AMBULATORY IN ROOM. NO SHORTNESS OF BREATH. RIGHT THIRD TOE WITH BANDAID COVERING PER SMALL ABRASION. LEGS ARE 3-4+ EDEMATOUS, WHICH HE SAYS IS NORMAL FOR HIM.
[2018-11-23 14:49] VITALS: BP 114/76
--- NOTE | 2018-11-23 16:19 | NUR ---
PT IS DISCHARGED BACK TO [facility]'. IV REMOVED, DRESSED IN HIS OWN CLOTHES, TAKEN BY WHEELCHAIR TO LOBBY AFTER VERBALIZING UNDERSTANDING OF DC INSTRUCTIONS.
== END 2018-11-23 16:10 | disposition home or self-care (01) | DRG 194 ==
LOC: ED 00:27 → ED-I 02:11 → ED 02:35 → MS2 02:36
PROVIDERS: Emergency Medicine; ADMIT Internal Medicine; ATTEND Internal Medicine
DX: J18.9 Pneumonia, unspecified organism (principal); I13.0 Hypertensive heart and chronic kidney disease with heart failure and stage 1 through stage 4 chronic kidney disease, or unspecified chronic kidney disease; N18.3 Chronic kidney disease, stage 3 (moderate); I50.9 Heart failure, unspecified; E11.22 Type 2 diabetes mellitus with diabetic chronic kidney disease; E11.51 Type 2 diabetes mellitus with diabetic peripheral angiopathy without gangrene; E11.69 Type 2 diabetes mellitus with other specified complication; E78.5 Hyperlipidemia, unspecified; I25.10 Atherosclerotic heart disease of native coronary artery without angina pectoris; I48.0 Paroxysmal atrial fibrillation; M19.90 Unspecified osteoarthritis, unspecified site; M10.9 Gout, unspecified; G47.33 Obstructive sleep apnea (adult) (pediatric); S90.411A Abrasion, right great toe, initial encounter; W19.XXXA Unspecified fall, initial encounter; Y92.099 Unspecified place in other non-institutional residence as the place of occurrence of the external cause; Z79.4 Long term (current) use of insulin; Z95.1 Presence of aortocoronary bypass graft; Z95.0 Presence of cardiac pacemaker; Z79.02 Long term (current) use of antithrombotics/antiplatelets; Z79.82 Long term (current) use of aspirin; Z95.820 Peripheral vascular angioplasty status with implants and grafts
CPT/HCPCS: J3370

== ENCOUNTER 2019-02-18 11:40 | Emergency (ER) | payer MEDICARE ==
[~2019-02-18] VITALS: Ht 177.8 cm; Wt 99.0 kg
[~2019-02-18 11:40] MED LIST changes: +DOXYCYCL HYC100 MG PO
[2019-02-18] MEDS ORDERED: CYCLOBENZAPR5 MG PO (12:52)
[2019-02-18 14:29] VITALS: BP 137/81
== END 2019-02-18 14:39 | disposition home or self-care (01) ==
LOC: ED 11:40
DX: S39.012A Strain of muscle, fascia and tendon of lower back, initial encounter (principal); I11.0 Hypertensive heart disease with heart failure; I50.9 Heart failure, unspecified; E11.9 Type 2 diabetes mellitus without complications; Z95.1 Presence of aortocoronary bypass graft; X58.XXXA Exposure to other specified factors, initial encounter

== ENCOUNTER 2019-03-06 15:31 | Inpatient (IN) | payer MEDICARE ==
[~2019-03-06] VITALS: Ht 177.8 cm; Wt 88.9 kg
[2019-03-06] VITALS (15 sets, daily range): BP systolic 137–166; BP diastolic 68–90
[~2019-03-06 15:31] MED LIST changes: +CYCLOBENZAPR5 MG PO
--- NOTE | 2019-03-06 15:45 | NUR ---
PT TO ICU 7 VIA WHEELCHAIR ACCOMPANIED BY VOLUNTEER. PT ABLE TO TRANSFER SELF TO BED WITH MINIMAL ASSISTANCE. ADMISSION ASSESSMENT COMPLETED AT THIS TIME. IV STARTED. ORIENTED PT TO ROOM AND UNIT. CALL LIGHT IN REACH. WILL CONTINUE TO MONITOR.
--- NOTE | 2019-03-06 16:00 | NUR ---
LAB AT BEDSIDE TO DRAW LABS, THEN RADIOLOGY AT BEDSIDE FOR PORTABLE CHEST XRAY
--- NOTE | 2019-03-06 16:15 | NUR ---
RT AT BEDSIDE FOR EKG AND ABG
[2019-03-06 16:26] LABS: HEMATOCRIT 38.1 % (39.0-50.0); HEMOGLOBIN 11.9 g/dl (14.0-18.0); IMMATURE GRANULOCYTES 0.2 % (0.0-5.0); MEAN CELL VOLUME 93.6 fL CALC (80.0-100.0); MEAN CORPUSCULAR HGB 29.2 pG CALC (26.0-32.0); MEAN CORPUSCULAR HGB CONC 31.2 g/L CALC (32.0-36.0); NEUT# 7.04 thou/uL (1.82-7.42); RED BLOOD COUNT 4.07 mill/uL (4.70-6.10); RED CELL DISTRI WIDTH 14.6 % (11.5-15.5)
[2019-03-06 16:48] LABS: BILIRUBIN, TOTAL 1.2 mg/dL (0.0-1.4); CREATININE 2.2 mg/dL (0.7-1.3); POTASSIUM 4.8 mmol/l (3.5-5.1); TOTAL PROTEIN 7.5 g/dL (6.3-8.2)
[2019-03-06 16:54] LABS: URINE BILIRUBIN - DIPSTICK NEGATIVE (NEGATIVE); URINE BLOOD DIPSTICK TRACE-LYSED (NEGATIVE); URINE CLARITY CLEAR; URINE COLOR YELLOW; URINE GLUCOSE - DIPSTICK NEGATIVE (NEGATIVE); URINE KETONE NEGATIVE (NEGATIVE); URINE LEUK ESTERASE SMALL (Negative); URINE NITRITE - DIPSTICK POSITIVE (Negative); URINE PH 6.5 (4.5-8.0); URINE PROTEIN - DIPSTICK NEGATIVE (NEG-TRACE); URINE SPECIFIC GRAVITY 1.015; URINE UROBILINOGEN - DIPSTICK 0.2 E.U./dL (0.2)
[2019-03-06] MEDS ORDERED: SPIRONOLACT25 MG PO (16:59)
[2019-03-06] MEDS ORDERED: BUMETANIDE1 MG PO (16:59)
--- NOTE | 2019-03-06 17:05 | NUR ---
NITRO GTT STARTED PER PROTOCOL.
[2019-03-06 17:09] LABS: URINE BACTERIA FEW hpf; URINE RBC 0-2 RBC/hpf (0-5)
[2019-03-06 17:16] LABS: TSH, 3RD GENERATION 1.31 uIU/mL (0.47 - 4.68)
--- NOTE | 2019-03-06 17:30 | NUR ---
MEYER PLACED USING STERILE TECHNIQUE IMMEADIATE RETURN OF CLEAR YELLOW URINE NOTED.
--- NOTE | 2019-03-06 17:30 | NUR ---
DR FAJARDO AT BEDSIDE AT [facility]
--- NOTE | 2019-03-06 17:30 | NUR ---
PT SET UP FOR PM MEAL
--- NOTE | 2019-03-06 18:33 | NUR ---
PACEMAKE INTERROGATED AT THIS TIME
--- NOTE | 2019-03-06 19:10 | NUR ---
REPORT RECEIVED FROM NIYA MAN. PT SITTING UP IN BED WITH FAMILY AT BEDSIDE; PT IS DROWSY AND FALLS ASLEEP WHILE HE IS TALKING; ORIENTED X 3. PT ALSO STATES THAT HE IS SEEING OTHER PEOPLE IN THE ROOM AND THEN THEY DISAPPEAR; DENIES ANY HX OF HALLUCINATIONS. DENIES PAIN. RESPIRATIONS EVEN AND UNLABORED ON ROOM AIR. NITRO GTT INFUSING AT 5 MCG/MIN WITH NS AT KVO; IV SITE APPEARS HEALTHY. LUNGS ARE CLEAR; PT SKIN IS DRY AND APPEARS SLIGHTLY JAUNDICED; HR IRREGULAR; PACED ON TELEMETRY WITH PVC'S; 4+ PEDAL EDEMA; DRY CRAKCED MILDLY RED HEELS; LEFT PINKLY TOE NAIL IS MISSING WITH OPEN SKIN; MEYER CATHETER DRAINING CLEAR PALE YELLOW URINE IN LARGE AMOUNTS. PLAN OF CARE REVIEWED. PT ENCOURAGED TO VERBALIZE CONCERNS. STATES UNDERSTANDING. SAFETY MEASURES IN PLACE. CALL LIGHT WITHIN REACH.
--- NOTE | 2019-03-06 21:10 | NUR ---
ACCU CHECK 169. PT CONTINUES TO VERBALIZE THAT HE IS HAVING VISUAL HALLUCINATIONS OF PEOPLE IN HIS ROOM; OTHERWISE PLESANT AND LAUGHING WITH FAMILY. MORE ALERT. STATES THAT HE TAKES NITRO PO AT HOME WITHOUT SIDE EFFECTS. VSS. ONLY REQUEST AT THIS TIME IS FOR A WARM BLANKET. HS SNACK PROVIDED.
[2019-03-07] VITALS (32 sets, daily range): BP systolic 100–143; BP diastolic 52–83
--- NOTE | 2019-03-07 00:35 | NUR ---
OXYGEN APPLIED 2L VIA NC FOR OXYGEN SATURATION DECREASING TO 87% OCCASIONALLY DURING SLEEP. PT STATES THAT HE IS HAVING TROUBLE SLEEPING. ENCOURAGED TO REPOSITION AND ALL LIGHTS TURNED OFF. LAB AT BEDSIDE FOR TROPONIN.
--- NOTE | 2019-03-07 01:54 | NUR ---
PT YELLING OUT FOR ASSISTANCE; CALL LIGHT IS WITHIN REACH AND PT REEDUCATED ON USE. REQUESTS HIS CELL PHONE AND CALLS SON. REMINDED OF TIME, BUT PT STATES HE CAN'T SLEEP AND WANTS TO TRY TO TALK TO HIS SON. NO OTHER NEEDS AT THIS TIME. ADDITIONAL 1250ML EMPTIED FROM MEYER.
--- NOTE | 2019-03-07 02:17 | NUR ---
PT USED CALL LIGHT FOR C/O MILD NAUSEA; DIET GINERALE GIVEN. PT STATES HE HAS STARTED COUGHING UP SOME FLEM; SPUTUM APPEARS LIGHT PINK AND FROTHY. VSS. 100% SPO2 CURRENTLY ON 2L. WILL CONTINUE TO MONITOR.
--- NOTE | 2019-03-07 03:42 | NUR ---
REQUESTING TO SIT UP ON EDGE OF BED AND HAVE A SNACK; SAT UP FOR 15 MINUTES THEN ASKED TO LAY BACK DOWN.
[2019-03-07 05:36] LABS: HEMATOCRIT 40.3 % (39.0-50.0); HEMOGLOBIN 12.8 g/dl (14.0-18.0); MEAN CELL VOLUME 92.4 fL CALC (80.0-100.0); MEAN CORPUSCULAR HGB 29.4 pG CALC (26.0-32.0); MEAN CORPUSCULAR HGB CONC 31.8 g/L CALC (32.0-36.0); RED BLOOD COUNT 4.36 mill/uL (4.70-6.10); RED CELL DISTRI WIDTH 14.6 % (11.5-15.5)
[2019-03-07 06:06] LABS: CREATININE 2.1 mg/dL (0.7-1.3); MAGNESIUM 1.8 mg/dL (1.6-2.3); POTASSIUM 4.6 mmol/l (3.5-5.1)
--- NOTE | 2019-03-07 07:30 | NUR ---
PT RESTING WITH EYES CLOSED AND NO SIGNS OF DISTRESS. RESPIRATIONS EVEN AND UNLABORED ON OXYGEN. CALL LIGHT WITHIN REACH.
--- NOTE | 2019-03-07 08:30 | NUR ---
DISCUSSED NITRO DRIP WITH PHYSICIAN. SBP 130'S TO 140'S. MAINTAIN NITRO AT 5MCG/KG/MIN FOR SBP ABOVE 110
--- NOTE | 2019-03-07 12:45 | NUR ---
PT SITTING UP ON SIDE OF BED WITH SON AT BEDSIDE. NO DISTRESS NOTED. O2 NOT ON PT. O2 SAT 90% ON ROOM AIR. O2 REPLACED AT 2L NC. PT REQUESTED TO KEEP O2 TUBING IN PLACE DUE TO DECREASED OXYGEN SATURATION ON ROOM AIR. PT ASSISTED OOB TO RECLINER AND POSITIONED FOR COMFORT.
--- NOTE | 2019-03-07 16:35 | NUR ---
PT RETURNED TO BED WITH ASSIST X2
--- NOTE | 2019-03-07 17:16 | NUR ---
SPOKE WITH DR. MOORE ON ROUNDS TO UPDATE PHYSICIAN THAT PT HAS BEEN WEANED OFF NITRO DRIP. UPDATED ON CURRENT VITAL SIGNS AND PT STATUS. PT REPORTS THAT SWELLING IN LEGS IS MUCH IMPROVED AND THAT HE IS BREATHING EASIER. PT IN GOOD SPIRITS.
--- NOTE | 2019-03-07 17:17 | NUR ---
KEEP NITRO DRIP OFF AT THIS TIME PER PHYSICIAN.
--- NOTE | 2019-03-07 19:00 | NUR ---
REPORT RECEIVED FROM NIYA PINZON. PT SITTING UP IN BED WATCHING TV; ALERT AND ORIENTED. DENIES PAIN. RESPIRATIONS EVEN AND UNLABORED ON OXYGEN 2L VIA NC. LUNGS ARE CLEAR. IV SITE APPEARS HEALTHY TO RFA AND FLUSHES WELL; NOW SALINE LOCKED. 3+ PITTING EDEMA TO LEGS; THEY APPEAR SMALLER THAN ON ADMIT. MEYER CATHETER IS PATENT AND CONTINUES TO DRAIN PALE CLEAR YELLOW URINE IN LARGE AMOUNTS. VSS; TEMP 99.4. PLAN OF CARE REVIEWED. PT ENCOURAGED TO VERBALIZE CONCERNS. STATES UNDERSTANDING. SAFETY MEASURES IN PLACE. CALL LIGHT WITHIN REACH.
--- NOTE | 2019-03-07 21:12 | NUR ---
PT C/O LEFT HIP DISCOMFORT; WARM PACK APPLIED AND REPOSITIONING ENCOURAGED. ACCU CHECK 186. PT C/O OF NOT BEING ABLE TO SLEEP FOR THE LAST 2 DAYS; NEW ORDER RECEIVED FROM [employer].
--- NOTE | 2019-03-07 22:50 | NUR ---
PT ASLEEP WITH NO SIGNS OF DISTRESS. RESPIRATIONS EVEN AND UNLABORED ON OXYGEN. RESTORIL GIVEN AT HS FOR SLEEPLESSNESS. PACED ON TELEMETRY. VSS.
[2019-03-08] VITALS (10 sets, daily range): BP systolic 93–145; BP diastolic 63–84
--- NOTE | 2019-03-08 00:49 | NUR ---
PT AWAKENS TO VERBAL STIMULI; RESING COMFORTABLY. NO REQUESTS OR CONCERNS AT THIS TIME. CALL LIGHT WITHIN REACH.
--- NOTE | 2019-03-08 02:35 | NUR ---
ASSISTED WITH REPOSITIONING WITH PILLOWS R/T LEFT HIP DISCOMFORT WITH GOOD EFFECT.
--- NOTE | 2019-03-08 04:40 | NUR ---
PT USED CALL LIGHT TO ASK NURSE TO WRITE DOWN A FEW NUMBERS; PT STATES THAT IT MAY SOUND CRAZY, BUT HE HAS BEEN INVOLVED WITH THE [employer] REGARDING HOMICIDES AND HE NEEDS TO MAKE A FEW PHONE CALLS. PT MAKES OTHER COMMENTS RELATED TO THIS ISSUE; PT REMINDED THAT OF THE TIME AND ENCOURAGED TO REST; IV BUMEX GIVEN NOW. TEMPERATURE OF 100.7; BLANKETS REMOVED AND ROOM COOLED; WILL REASSESS. PT REQUESTING GINGERALE; PROVIDED. DECLINES BATH AT THIS TIME. PACED ON TELEMETRY WITH PVC'S. WILL CONTINUE TO MONITOR.
[2019-03-08 05:16] LABS: HEMATOCRIT 44.1 % (39.0-50.0); MEAN CELL VOLUME 92.3 fL CALC (80.0-100.0); MEAN CORPUSCULAR HGB 29.3 pG CALC (26.0-32.0); MEAN CORPUSCULAR HGB CONC 31.7 g/L CALC (32.0-36.0); RED BLOOD COUNT 4.78 mill/uL (4.70-6.10); RED CELL DISTRI WIDTH 14.3 % (11.5-15.5)
[2019-03-08 05:29] LABS: CREATININE 2.1 mg/dL (0.7-1.3); MAGNESIUM 1.9 mg/dL (1.6-2.3); POTASSIUM 4.3 mmol/l (3.5-5.1)
--- NOTE | 2019-03-08 06:01 | NUR ---
TEMPERATURE DOWN TO 99.7. A TOTAL OF 2900ML OF URINE EMPTIED FROM MEYER THIS SHIFT; DAILY WEIGHT OBTAINED PT NOW 199.1 LBS. RESTING WITH EYES CLOSED.
--- NOTE | 2019-03-08 07:20 | NUR ---
PT RESTING IN BED WITH EYES CLOSED. AROUSES TO VERBAL STIMULI. PT IS ALERT AND ORIENTED X3. SHIFT ASSESSMENT COMPLETED AT THIS TIME. IV PATENT X1. CALL LIGHT IN REACH. WILL CONTINUE TO MONITOR.
--- NOTE | 2019-03-08 07:35 | NUR ---
PT ASSISTED UP TO CHAIR AT THIS TIME. CALL LIGHT IN REACH. WILL CONTINUE TO MONITOR.
--- NOTE | 2019-03-08 07:50 | NUR ---
PT SET UP FOR AM MEAL AT THIS TIME
--- NOTE | 2019-03-08 10:04 | NUR ---
PT SITTING UP IN CHAIR YELLING AND DEMANDING A BLANKET. TEMP RECHECK 99.8. ADDITIONAL BLANKET PROVIDED
--- NOTE | 2019-03-08 10:30 | NUR ---
Saima TAN APRN AT BEDSIDE AT THIS TIME.
--- NOTE | 2019-03-08 11:40 | NUR ---
PT SET UP FOR NOON MEAL
--- NOTE | 2019-03-08 11:50 | NUR ---
DR FAJARDO AND Saima TAN APRN AT BEDSIDE AT THIS TIME
--- NOTE | 2019-03-08 13:45 | NUR ---
RADIOLOGY AT [facility] AT THIS TIME
--- NOTE | 2019-03-08 14:00 | NUR ---
PT SITTING UP IN BED AT THIS TIME. RESP ARE EVEN AND UNLABORED. NO DISTRESS NOTED. CALL LIGHT IN REACH. WILL CONTINUE TO MONITOR.
--- NOTE | 2019-03-08 15:50 | NUR ---
PT RESTING IN BED AWAKE. TEMP IS 101.0. NOTIFIED DR PARSONS NEW ORDER RECIEVED FOR TYLENOL. WILL MEDICATE. CALL LIGHT IN REACH. WILL CONTINUE TO MONITOR.
--- NOTE | 2019-03-08 17:54 | NUR ---
PT SET UP FOR PM MEAL
--- NOTE | 2019-03-08 19:15 | NUR ---
awake. denies distress. court recording monitor shows paced rhythm pvcs. #20 rfa saline lock. po fluids limited. sullivan cath in place. urine clear yellow. fall precautions cont.
--- NOTE | 2019-03-08 19:40 | NUR ---
lab here. blood drawn.
--- NOTE | 2019-03-08 23:30 | NUR ---
restoril 15mg po given per cherelle farmer for sleep.
[2019-03-09] VITALS (10 sets, daily range): BP systolic 99–165; BP diastolic 60–93
--- NOTE | 2019-03-09 01:00 | NUR ---
talking out in sleep.
--- NOTE | 2019-03-09 02:00 | NUR ---
resting quietly. resps cece & unlabored. no apparent distress.
--- NOTE | 2019-03-09 04:04 | NUR ---
eyes closed. no distress. [employer] manager shows paced rhythm pvcs hr 80.
--- NOTE | 2019-03-09 05:00 | NUR ---
lab here. blood drawn.
[2019-03-09 06:14] LABS: HEMATOCRIT 47.6 % (39.0-50.0); HEMOGLOBIN 15.3 g/dl (14.0-18.0); MEAN CELL VOLUME 91.7 fL CALC (80.0-100.0); MEAN CORPUSCULAR HGB 29.5 pG CALC (26.0-32.0); MEAN CORPUSCULAR HGB CONC 32.1 g/L CALC (32.0-36.0); RED BLOOD COUNT 5.19 mill/uL (4.70-6.10); RED CELL DISTRI WIDTH 14.2 % (11.5-15.5)
[2019-03-09 07:50] LABS: CREATININE 2.4 mg/dL (0.7-1.3)
--- NOTE | 2019-03-09 07:50 | NUR ---
PT SET UP FOR AM MEAL
--- NOTE | 2019-03-09 09:30 | NUR ---
Saima TAN APRN AT BEDSIDE
--- NOTE | 2019-03-09 10:19 | NUR ---
PHYSICAL THERAPY AT BEDSIDE AT THIS TIME
--- NOTE | 2019-03-09 12:34 | NUR ---
DR FAJARDO AT BEDSIDE AT THIS TIME.
--- NOTE | 2019-03-09 14:07 | NUR ---
PT RESTING IN BED WITH EYES CLOSED. RESP ARE EVEN AND UNLABORED. NO DISTRESS NOTED. CALL LIGHT IN REACH. WILL CONTINUE TO MONITOR.
--- NOTE | 2019-03-09 16:00 | NUR ---
PT RESTING IN BED AWAKE AND WATCHING TV. RESP ARE EVEN AND UNLABORED. NO DISTRESS NOTED. CALL LIGHT IN REACH. WILL CONTINUE TO MONITOR.
--- NOTE | 2019-03-09 17:05 | NUR ---
report received from Erick Cm, RN; pt awake; offers no complaints; will continue to monitor
--- NOTE | 2019-03-09 18:05 | NUR ---
pt awake in bed; offers no complaints; no apparent distress noted; spouse present at bedside; sullivan to gravity; iv flushed and patent; paced/ pvc on monitor; o2 per nc; to be medicated with tylenol for temp 100.1; call light within reach
--- NOTE | 2019-03-09 19:00 | NUR ---
awake. watching football. denies distress. o2 cont per nc. radiation monitor shows paced rhythm pvcs. #20 rfa saline lock. po fluids taken fair. sullivan cath in place. urine clear yellow. fall precautions cont.
--- NOTE | 2019-03-10 00:01 | NUR ---
awake. requested to sit on side of bed. assisted to side of bed. machine steak tenderizer shows sinus rhythm hr 72.
--- NOTE | 2019-03-10 00:30 | NUR ---
restoril 15mg po per request for sleep. assisted back into bed.
[2019-03-10 02:00] VITALS: BP 116/78
--- NOTE | 2019-03-10 04:00 | NUR ---
child monitor shows sinus rhythm hr 72.
[2019-03-10 05:00] VITALS: BP 105/62
--- NOTE | 2019-03-10 05:41 | NUR ---
lab here. blood drawn..
[2019-03-10 05:54] LABS: HEMATOCRIT 41.8 % (39.0-50.0); HEMOGLOBIN 13.8 g/dl (14.0-18.0); MEAN CELL VOLUME 90.9 fL CALC (80.0-100.0); RED BLOOD COUNT 4.6 mill/uL (4.70-6.10)
[2019-03-10 06:11] LABS: ALBUMIN 3.7 g/dL (3.2-5.0); CREATININE 2.7 mg/dL (0.7-1.3); TOTAL PROTEIN 7.4 g/dL (6.3-8.2)
[2019-03-10 06:14] LABS: BILIRUBIN, TOTAL 1.8 mg/dL (0.0-1.4); POTASSIUM 3.9 mmol/l (3.5-5.1)
--- NOTE | 2019-03-10 07:00 | NUR ---
PT RESTING IN BED WITH EYES CLOSED. AROUSES EASILY TO VERBAL STIMULI. PT IS ALERT AND ORIENTED X3 BUT SEEMS TO HAVE SOME CONFUSION WELL. SHIFT ASSESSMENT COMPLETED AT THIS TIME. IV PATENT X1. CALL LIGHT IN REACH. WILL CONTINUE TO MONITOR.
--- NOTE | 2019-03-10 07:30 | NUR ---
PT SET UP FOR AM MEAL.
--- NOTE | 2019-03-10 08:15 | NUR ---
PT ASSISTED UP TO RECLINER. PT ABLE TO STAND WITH WALKER AND TRANSFER SELF TO CHAIR WITH MINIMAL ASSISTANCE. BETSY MIDDLETON. PT TOLERATED WELL. CALL LIGHT IN REACH. WILL CONTINUE TO MONITOR.
--- NOTE | 2019-03-10 08:32 | NUR ---
SON PHONED FOR UPDATE. UPDATE PROVIDED.
[2019-03-10] MEDS ORDERED: BUMETANIDE1 MG PO ×2 (08:49→09:14)
[2019-03-10] MEDS ORDERED: AMOX/K CLAV875 M1 PO (08:49)
[2019-03-10 09:10] VITALS: BP 104/57
--- NOTE | 2019-03-10 11:40 | NUR ---
pt assisted to bsc for bm. pt had small bm. pt cleansed and assisted back to recliner with minimal assistance. pt tolerated well.
--- NOTE | 2019-03-10 12:05 | NUR ---
pt set up for noon meal
--- NOTE | 2019-03-10 12:17 | NUR ---
DR FAJARDO AND Saima TAN APRN AT BEDSIDE AT THIS TIME
[2019-03-10] MEDS ORDERED: DOXYCYC MONO100 M3 PO (12:18)
--- NOTE | 2019-03-10 13:58 | NUR ---
MITCH caldera called per ad writer; informed of delay in discharge; GSA COORDINATOR informed per this ad writer pt has not urinated since sullivan removal, no transport per Phi Gray and inability to contact grandson or ex ; approve to transfer to [place] obtained;
--- NOTE | 2019-03-10 14:15 | NUR ---
PT TO [facility] VIA WHEELCHAIR ACCOMPANIED BY NURSE. PT ASSISTED TO BEDIN ROOM 261. PT VOIDED ABOUT 25 CC. BLADDER SCANNED SHOWING 205ML. REPORT GIVEN TO Jaylene IRVIN LPN. PT TOLERATED TRANSFER WELL.
[2019-03-10 14:18] VITALS: BP 108/73
--- NOTE | 2019-03-10 14:18 | NUR ---
PT WAS TRANSFERRED FROM ICU VIA WITH STAFF. IV SITE, AND TELE MONITOR IN PLACE. BLADDER SCAN WAS PERFORMED BY Roly JHA RN. HAD RESIDUAL OF 205. ABLE TO VOID 25CC AT THAT TIME. CONTINUE TO OBSERVE AND MONITOR.
--- NOTE | 2019-03-10 16:00 | NUR ---
PT IS RELAXING IN BED ATTEMPTING TO USE THE URINAL. IV SITE IS FREE FROM REDNESS OR EDEMA.
--- NOTE | 2019-03-10 16:01 | NUR ---
PT NEEDING TO USE THE BATHROOM. PLACED URINAL INBETWEEN HIS LEGS.
[2019-03-10 19:00] VITALS: BP 103/61
--- NOTE | 2019-03-10 20:25 | NUR ---
PT ASSISTED USING URINAL, 25CC OUTPUT OF DARK YELLOW URINE. PT BLADDERS SCANNED @381 AND PHYSICIAN NOTIFIED. ORDERS FOR CONTINUED MONITORING AND FREQUENT ASSISTANCE AT THIS TIME. PT ASSISTED BACK TO BED, PT IS VERY WEAK AMBULATING AND UNSTEADY ON FEET/ 2X ASSIST. PT LEFT W/BED ALARM ON AND ROOM WARMED PER REQUEST. CALL LIGHT NEXT TO HAND.
--- NOTE | 2019-03-10 21:20 | NUR ---
PT ASSISTED USING URINAL, 50CC OF CLEAR DARK YELLOW URINE OUTPUT AT THIS TIME. PT MEDICATED ORDERS PROVIDE.
--- NOTE | 2019-03-10 22:26 | NUR ---
AIDE REPORTS THAT PT HAD 75CC OF YELLOW URINE OUTPUT TO URINAL AT THIS TIME.
[2019-03-11] VITALS: BP 109/67
--- NOTE | 2019-03-11 00:28 | NUR ---
PT MEDICATED W/IV ANTIBIOTIC THERAPY ORDERS PROVIDE. PT WAS SLEEPING WHEN I ENTERED THE ROOM. NO S/O DISTRESS NOTED. CALL LIGHT W/IN REACH AND BED ALARM ON.
--- NOTE | 2019-03-11 00:59 | NUR ---
PT ATTEMPTING TO URINATE IN URINAL OR BSC/UNABLE TO URINATE LAST SEVERAL ATTEMPTS. PT BLADDER SCANNED @450. DISCUSSED POC W/PT/REFUSING MEYER CATHETER. WILL CONTINUE TO MONITOR FOR OUTPUT.
[2019-03-11 04:35] VITALS: BP 91/57
--- NOTE | 2019-03-11 05:49 | NUR ---
PT MEDICATED W/IV ANTIBIOTIC THERAPY. PT ATTEMPTED TO USE URINAL, NO OUTPUT. BLADDER SCAN SHOWS 619, DISCUSSED W/PT POSSIBLE NEED FOR MEYER CATH/REFUSED AND SAID TO "TELL THE DOCTOR I AM NOT DOING THAT." WILL NOTIFY PHYSICIAN AGAIN OF FURTHER BLADDER RETENTION. PT EXPRESSESS URGE TO URINATE, BUT DENIES PAIN.
--- NOTE | 2019-03-11 07:00 | NUR ---
REPORT RECEIVED FROM ODINRN;PT RESTING IN SEMI FOWLERS POSITION;INTRODUCED SELF TO PT AND POC DISCUSSED;RESPIRATIONS EVEN AND UNLABORED ON RA;PT DENIES ANY CURRENT PAIN OR NEEDS;TELE MONITORING IN PLACE;ACCUCHECK 78, NO COVERAGE NEEDED;PT ENCOURAGED TO CALL FOR ASSISTANCE IF NEEDED;FALL PRECAUTIONS IN PLACE WITH BED IN THE LOWEST POSITION AND BED ALARM ON FOR SAFETY;CALL LIGHT IN REACH;WILL CONTINUE TO MONITOR
[2019-03-11 07:10] VITALS: BP 117/74
--- NOTE | 2019-03-11 08:37 | NUR ---
AT BEDSIDE DISCUSSING POC WITH PT.
--- NOTE | 2019-03-11 09:18 | NUR ---
LAB AT BEDSIDE
--- NOTE | 2019-03-11 09:30 | NUR ---
PT RESTING AT BEDSIDE,A&O X3 WITH FORGETFULNESS NOTED AT TIMES;PT DENIES ANY CURRENT PAIN OR DISCOMFORTS,PAIN SCALE AND REPORTING EDUCATED;RESPIRATIONS EVEN AND UNLABORED ON RA,CLEAR LUNG SOUNDS;ABDOMEN DISTENDED/SOFT ON PALPATION AND ACTIVE IN ALL 4 QUADRANTS;WEAK PEDAL PULSES WITH +1 EDEMA NOTED TO BLE,ENCOURAGED ELEVATION;#20G TO RFA FLUSHED AND PATENT,SITE APPEARS HEALTHY;PT DENIES ANY ADDITIONAL NEEDS AT THIS TIME AND IS ENCOURAGED TO CALL FOR ASSISTANCE IF NEEDED;CALL LIGHT IN REACH;WILL CONTINUE TO MONITOR
[2019-03-11 10:04] LABS: CREATININE 2.6 mg/dL (0.7-1.3); POTASSIUM 3.7 mmol/l (3.5-5.1)
--- NOTE | 2019-03-11 10:15 | NUR ---
PT NOTIFIED JANES DHILLON THAT HE NEEDED SOMETHING FOR LOWER BACK PAIN, UPON ENTERING THE ROOM PT NOTED TO BE SLEEPING;WILL CONTINUE TO MONITOR
[2019-03-11 10:42] VITALS: BP 109/69
--- NOTE | 2019-03-11 11:27 | NUR ---
IV SITE REMOVED WITH CATHETER INTACT.
--- NOTE | 2019-03-11 11:31 | NUR ---
ALL DISCHARGE INSTRUCTIONS PROVIDED AT THIS TIME;RX FOR DOXY AND BUMEX PROVIDED WELL ORDER TO RETURN TO [facility] FOR LAB WORK IN 1 WEEK;PT DENIES ANY CURRENT QUESTIONS;WHEELCHAIR PROVIDED FOR DISCHARGE;[facility] STAFF TO TRANSPORT PT TO [facility].
--- NOTE | 2019-03-11 11:32 | NUR ---
Discharge instructions given. Patient verbalizes understanding of same. Discharged in stable condition via Wheelchair to [facility] with [facility]Other. All belongings sent with pt.
== END 2019-03-11 11:30 | disposition home or self-care (01) | DRG 291 ==
LOC: ICU 15:31 → MS2 03-10 14:21
PROVIDERS: Nurse Practitioner Family; ADMIT Internal Medicine; ATTEND Internal Medicine
PROC: 0T9B70Z Drainage of Bladder with Drainage Device, Via Natural or Artificial Opening (ICD-10-PCS; principal; 2019-03-06)
DX: I50.23 Acute on chronic systolic (congestive) heart failure (principal); J18.9 Pneumonia, unspecified organism; N18.4 Chronic kidney disease, stage 4 (severe); I48.20 Chronic atrial fibrillation, unspecified; N17.9 Acute kidney failure, unspecified; I25.10 Atherosclerotic heart disease of native coronary artery without angina pectoris; E11.22 Type 2 diabetes mellitus with diabetic chronic kidney disease; M19.90 Unspecified osteoarthritis, unspecified site; E11.51 Type 2 diabetes mellitus with diabetic peripheral angiopathy without gangrene; N40.0 Benign prostatic hyperplasia without lower urinary tract symptoms; I25.5 Ischemic cardiomyopathy; M54.5 Low back pain; Z79.4 Long term (current) use of insulin; Z95.820 Peripheral vascular angioplasty status with implants and grafts; Z95.0 Presence of cardiac pacemaker; Z95.1 Presence of aortocoronary bypass graft
CPT/HCPCS: J1650

== ENCOUNTER 2019-05-26 | Emergency (ER) | payer MEDICARE ==
[~2019-05-26] MED LIST changes: +AMOX/K CLAV875 M1 PO; +BUMETANIDE1 MG PO; +DOXYCYC MONO100 M3 PO; +SPIRONOLACT25 MG PO
[2019-05-26 23:46] LABS: IMMATURE GRANULOCYTES 0.4 % (0.0-5.0); MEAN CELL VOLUME 90.8 fL CALC (80.0-100.0); MEAN CORPUSCULAR HGB 30.4 pG CALC (26.0-32.0); MEAN CORPUSCULAR HGB CONC 33.5 g/L CALC (32.0-36.0); NEUT# 5.46 thou/uL (1.82-7.42); RED BLOOD COUNT 3.58 mill/uL (4.70-6.10); RED CELL DISTRI WIDTH 13.2 % (11.5-15.5)
[2019-05-26 23:47] LABS: HEMATOCRIT 32.5 % (39.0-50.0); HEMOGLOBIN 10.9 g/dl (14.0-18.0)
[2019-05-26 23:57] LABS: ALBUMIN 3.9 g/dL (3.2-5.0); BILIRUBIN, TOTAL 1.1 mg/dL (0.0-1.4); CREATININE 2.8 mg/dL (0.7-1.3); TOTAL PROTEIN 7.2 g/dL (6.3-8.2)
[2019-05-27] MEDS ORDERED: TRESIBA FL200 UNIT/M SC (00:16)
[2019-05-27] MEDS ORDERED: MIRALAX3350 N1 PO (00:18)
[2019-05-27 00:45] LABS: ACT PARTIAL THROMBO TIME 28.5 SECONDS (20.0-32.5); INTERNATIONAL NORMALIZED RATIO 1.1 RATIO (0.7-1.3); PROTHROMBIN TIME 11.2 SECONDS (9.0-12.5)
== END 2019-05-27 01:20 | disposition short-term general hospital (02) ==
PROVIDERS: Emergency Medicine
DX: I21.4 Non-ST elevation (NSTEMI) myocardial infarction (principal); N19 Unspecified kidney failure; I11.0 Hypertensive heart disease with heart failure; I50.9 Heart failure, unspecified; I25.10 Atherosclerotic heart disease of native coronary artery without angina pectoris; E11.9 Type 2 diabetes mellitus without complications; Z95.1 Presence of aortocoronary bypass graft; Z79.4 Long term (current) use of insulin
CPT/HCPCS: J1644

== ENCOUNTER 2019-08-02 10:57 | Inpatient (IN) | payer MEDICARE ==
[~2019-08-02] VITALS: Ht 177.8 cm; Wt 112.2 kg
[~2019-08-02 10:57] MED LIST changes: +MIRALAX3350 N1 PO; +TRESIBA FL200 UNIT/M SC
--- NOTE | 2019-08-02 10:57 | NUR ---
PT TO ROOM 13 VIA EMS. EDEMA TO BLE
--- NOTE | 2019-08-02 11:05 | NUR ---
RECIEVED FROM EMS. MOVED TO STRETCHER USING SHEET. CHANGED TO GOWN. MONITORS APPLIED. PT AO X 3. SKIN PINK WARM AND DRY. PITTING EDEMA BILAT LEGS WITH ONE AREA OF WEAPING, DRESSING IN PLACE ON RIGHT LOWER LEG. PT REPORTS INCREASED SWELLING IN LEGS AND DIFFICULTY SLEEPING AT NIGHT
[2019-08-02] MEDS ORDERED: REGLAN10 MG PO (11:11)
[2019-08-02] MEDS ORDERED: XARELTO10 MG PO (11:11)
[2019-08-02] MEDS ORDERED: ZOFRAN4 MG/TAB PO (11:12)
[2019-08-02] MEDS ORDERED: ATORVASTATIN CA80 MG PO (11:12)
[2019-08-02] MEDS ORDERED: CARVEDILOL6.25 MG PO (11:13)
[2019-08-02] MEDS ORDERED: ISOSORBIDE MONO30 MG PO (11:14)
[2019-08-02] MEDS ORDERED: NITROSTAT0.4 MG SL (11:15)
[2019-08-02] MEDS ORDERED: POTASSIUM CHLO20 ME2 PO (11:15)
[2019-08-02 11:33] LABS: HEMATOCRIT 26.6 % (39.0-50.0); IMMATURE GRANULOCYTES 0.4 % (0.0-5.0); MEAN CORPUSCULAR HGB 30.5 pG CALC (26.0-32.0); MEAN CORPUSCULAR HGB CONC 31.6 g/dL CAL (32.0-36.0); NEUT# 6.16 thou/uL (1.82-7.42); RED BLOOD COUNT 2.75 mill/uL (4.70-6.10); RED CELL DISTRI WIDTH 16.6 % (11.5-15.5)
[2019-08-02 11:38] LABS: HEMOGLOBIN 8.4 g/dl (14.0-18.0); MEAN CELL VOLUME 96.7 fL CALC (80.0-100.0)
[2019-08-02 11:51] LABS: ALBUMIN 3.4 g/dL (3.2-5.0); CREATININE 2.1 mg/dL (0.7-1.3); TOTAL PROTEIN 7.1 g/dL (6.3-8.2)
[2019-08-02 11:57] LABS: BILIRUBIN, TOTAL 1.7 mg/dL (0.0-1.4); MAGNESIUM 2.3 mg/dL (1.6-2.3); POTASSIUM 5.4 mmol/l (3.5-5.1)
[2019-08-02 11:58] LABS: ACT PARTIAL THROMBO TIME 42.6 SECONDS (20.0-32.5); INTERNATIONAL NORMALIZED RATIO 1.6 RATIO (0.7-1.3); PROTHROMBIN TIME 16.7 SECONDS (9.0-12.5)
--- NOTE | 2019-08-02 12:39 | NUR ---
PT TAKEN VIA STRETCHER TO XRAY FOR ULTRASOUND
[2019-08-02 12:57] LABS: URINE BILIRUBIN - DIPSTICK NEGATIVE (NEGATIVE); URINE BLOOD DIPSTICK TRACE-INTACT (NEGATIVE); URINE COLOR YELLOW; URINE GLUCOSE - DIPSTICK NEGATIVE (NEGATIVE); URINE KETONE NEGATIVE (NEGATIVE); URINE NITRITE - DIPSTICK NEGATIVE (Negative); URINE PROTEIN - DIPSTICK NEGATIVE (NEG-TRACE); URINE SPECIFIC GRAVITY 1.015
[2019-08-02 13:07] LABS: URINE LEUK ESTERASE LARGE (NEGATIVE)
[2019-08-02 13:16] LABS: URINE SQUAMOUS EPITHELIAL CELL FEW EPI/hpf (0-FEW); URINE WBC 50-100 WBC/hpf (0-5)
[2019-08-02 13:17] LABS: URINE BACTERIA FEW hpf; URINE MUCUS FEW hpf (NONE-FEW)
--- NOTE | 2019-08-02 13:57 | NUR ---
MED SURG UNABLE TO TAKE REPORT AT THIS TIME
--- NOTE | 2019-08-02 14:15 | NUR ---
PT ARRIVED TO THE UNIT VIA STRETCHER ACCOMPANIED BY STAFF. IV SITE IS FREE FROM REDNESS OR EDEMA.
--- NOTE | 2019-08-02 14:20 | NUR ---
PT TRANSPORTED VIA STRETCHER TO MED SURG. TELEMETRY IN PLACE
[2019-08-02 14:45] VITALS: BP 89/57
--- NOTE | 2019-08-02 14:50 | NUR ---
ASSESSMENT IS COMPLETED: IV SITE IS FREE FROM REDNESS OR EDEMA. HR IS REG,PULSES ARE STRONG X4, ABD IS SOFT WITH ACTIVE BS, O2 @ 2LITERS WITH NC. PT HAS +4 PITTING EDEMA NOTED ON BILAT EXTREMETIES. WITH WEEPING NOTED ON R LOWER CALF. ALSO EDEMA NOTED ON THE INNER THIGHS. PACE MAKER IN PLACE. TELE MONITOR ON PT. CONTINUE TO OBSERVE AND MONITOR.
--- NOTE | 2019-08-02 16:11 | NUR ---
SPOKE WITH DAUGHTER FROM [place] AND INQUIRED ABOUT THE ROOM. EXPLAINED HE IS RESTING WILL SHE CALL BACK LATER. VERBALIZED UNDERSTANDING
--- NOTE | 2019-08-02 18:28 | NUR ---
labs drawn for testing. pt was inquiring about the sullivan " if it would hurt" explained it does when it goes in,. but we may have a condom catheter that fits over the penis. he was willing to try that one. placed a condom catheter,. and pt is urinating. continue to observe and montior
[2019-08-02 18:40] VITALS: BP 105/62
--- NOTE | 2019-08-02 18:44 | NUR ---
PT IS RELAXING IN BED WITH NO DISTRESS NOTED. IV SITE IS FREE FROM REDNESS OR EDEMA/
--- NOTE | 2019-08-02 21:55 | NUR ---
PT RESTING IN BED, ALERT AND ORIENTED. RESPIRATIONS MORIAH AND UNLABORED ON O2 @ 2L, LUNGS SOUND DIMINISHED. PEDAL PULSES ARE WEAK. PT COMPLAINING OF BURNING FEELING ON HIS BUTTOCKS. SHEETS SOILED. PT GIVEN A BED BATH AND LINENS REPLACE, BARRIER CREME APPLIED TO BUTTOCKS. PT REPOSTIONED TO RIGHT SIDE. PT STATES "I FEEL MUCH BETTER, THAT MADE A BIG DIFFERENCE." SAFETY PRECAUTIONS IN PLACE. WILL CONTINUE TO MONITOR.
[2019-08-02 22:58] VITALS: BP 105/58
[2019-08-02 23:55] VITALS: BP 101/56
--- NOTE | 2019-08-03 01:15 | NUR ---
PT RESTING IN BED, WITH EYES CLOSED. RESPIRATIONS EVEN AND UNLABORED ON O2 @ 2L VIA NC. NO S/S OF DISTRESS AT THIS TIME. SAFETY PRECAUTIONS IN PLACE. WILL CONTINUE TO MONITOR.-
--- NOTE | 2019-08-03 03:52 | NUR ---
PT RESTING IN BED, RESPIRATIONS EVEN AND UNLABORED ON O2 @ 2L VIA NC. TELE IN PLACE. WILL CONTINUE TO MONITOR.
[2019-08-03 04:00] VITALS: BP 105/54
[2019-08-03 06:22] LABS: HEMATOCRIT 25.3 % (39.0-50.0); HEMOGLOBIN 7.8 g/dl (14.0-18.0); MEAN CELL VOLUME 96.2 fL CALC (80.0-100.0); MEAN CORPUSCULAR HGB 29.7 pG CALC (26.0-32.0); MEAN CORPUSCULAR HGB CONC 30.8 g/dL CAL (32.0-36.0); RED BLOOD COUNT 2.63 mill/uL (4.70-6.10); RED CELL DISTRI WIDTH 16.5 % (11.5-15.5)
[2019-08-03 07:26] LABS: POTASSIUM 3.8 mmol/l (3.5-5.1)
[2019-08-03 08:00] VITALS: BP 99/45
--- NOTE | 2019-08-03 09:00 | NUR ---
PT IS AWAKE, ALERT, ORIENTED X 3. LUNGS CLEAR BUT SIGNIFICANTLY DECREASED, 2 LPM NC. PEDAL EDEMA IS 3+, PALPABLE PULSES. DRY COUGH. PT SHORT OF BREATH WITH MINIMAL EXERTION.
[2019-08-03 11:14] VITALS: BP 114/56
--- NOTE | 2019-08-03 13:00 | NUR ---
PT WITH CONDOM CATHETER THAT LEAKED A LOT, WAS FINALLY CONVINCED TO ALLOW PLACEMENT OF MEYER CATHETER. PT TOLERATED WELL, 16F. PT HAS BEEN TO CT AND BACK TODAY ALSO, THORAX EXAMINED. SHORTNESS CONTINUES WITH MINIMAL EXERTION.
[2019-08-03 14:45] VITALS: BP 97/57
--- NOTE | 2019-08-03 16:10 | NUR ---
DAUGHTER JOSSE UPDATED ON PT STATUS. PT REMAINS AT REST IN THE CHAIR AT BEDSIDE, NO ACUTE DISTRESS NOTED.
--- NOTE | 2019-08-03 18:41 | NUR ---
P STATES THAT HE HAD THE BEST SLEEP THAT HE HAS HAD IN 20 YEARS IN THE CHAIR THIS AFTERNOON. DAUGHTER CALLED HIM, HE UPDATED HER.
[2019-08-03 19:05] VITALS: BP 101/57
--- NOTE | 2019-08-03 22:02 | NUR ---
PT RESTING IN RECLINER AT BEDSIDE, ALERT AND ORIETNED. RESPIRATIONS EVEN AND UNLABORED ON O2 @ 2L VIA NC. PEDAL PULSES WEAK. 3+ EDEMA IN LOWER EXTREMITIES. PT DENIES ANY PAIN OR DISCOMFORT AT THIS TIME. SAFETY PRECAUTIONS IN PLACE. WILL CONTINUE TO MONTIOR.
--- NOTE | 2019-08-04 | NUR ---
PT RESTING IN RECLINER AT BEDSIDE. NO S/S OF DISTRESS AT THIS TIME. WILL CONTINUE TO MONITOR.
[2019-08-04 01:15] VITALS: BP 113/64
[2019-08-04 04:00] VITALS: BP 102/58
--- NOTE | 2019-08-04 04:34 | NUR ---
PT RESTING IN BED, TELE IN PLACE. NO S/S OF DISTRESS AT THIS TIME. SAFETY PRECAUTIONS IN PLACE. WILL CONTINUE TO MONITOR.
[2019-08-04 05:13] LABS: HEMOGLOBIN 8.3 g/dl (14.0-18.0); MEAN CELL VOLUME 96.4 fL CALC (80.0-100.0); MEAN CORPUSCULAR HGB 29.6 pG CALC (26.0-32.0); MEAN CORPUSCULAR HGB CONC 30.7 g/dL CAL (32.0-36.0); RED BLOOD COUNT 2.8 mill/uL (4.70-6.10); RED CELL DISTRI WIDTH 16.4 % (11.5-15.5)
[2019-08-04 05:40] LABS: ALBUMIN 2.8 g/dL (3.2-5.0); BILIRUBIN, TOTAL 1.3 mg/dL (0.0-1.4); CREATININE 2.2 mg/dL (0.7-1.3)
[2019-08-04 07:46] VITALS: BP 91/52
--- NOTE | 2019-08-04 08:16 | NUR ---
PT SEEN AT REST IN THE BED, WAKENS EASILY, IS ALERT AND ORIENTED X 3. LUNGS ARE CLEAR THIS MORNING, 3 LPM NC. PT COUGHED, MAY HAVE ASPIRATED SLIGHTLY, DID HAVE TROUBLE RECOVERING HIS BREATH AFTER THIS. EDEMA SEEN AT 3+ BLE. MEYER IN PLACE DRAINS YELLOW URINE.
[2019-08-04 11:28] VITALS: BP 110/60
--- NOTE | 2019-08-04 13:31 | NUR ---
PT AT REST IN THE CHAIR, APPEARS COMFORTABLE. DAUGHTER CALLED FOR UPDATED ON CONDITION.
[2019-08-04 15:10] VITALS: BP 121/88
--- NOTE | 2019-08-04 17:26 | NUR ---
PT BACK IN BED AFTER BEING IN CHAIR FOR SEVERAL HOURS. PT WITH SORE SPOT TO COCCYX AREA, MASSAGE PROVIDED WITH BARRIER CREAM AND PT IS N0W SIDELYING.
[2019-08-04 19:18] VITALS: BP 90/49
--- NOTE | 2019-08-04 20:15 | NUR ---
PT RESTING IN BED, ALERT AND ORIENTED. RESPIRATIONS EVEN AND UNLABORED ON O2 @ 2L VIA NC. LUNG SOUND DIMINISHED. PEDAL PULSES WEAK. 3+ EDEMA TO LOWER EXTREMITIES. PT COMPLAINS OF A BURNING PAIN IN HIS HEELS ASKING FOR LOTION TO BE APPLIED. LOTION ALPIED TO LEGS AND FEET, PT REPOSITIONED, PILLOW PLACED UNDER PT LEGS, HEELS RAISED, HEEL PROTECTORS IN PLACE. PT COMFORTABLE. TELE IN PLACE. CALL HARTMAN WITHIN REACH. WILL CONTINUE TO MONITOR.
--- NOTE | 2019-08-04 23:35 | NUR ---
PT COMPLAINS OF NAUSEA, PT MEDICATED PER EMAR ORDERS. TELE IN PLACE. CALL HARTMAN WITHIN REACH. WILL CONTINUE TO MONITOR.
[2019-08-05] VITALS (7 sets, daily range): BP systolic 92–103; BP diastolic 43–61
--- NOTE | 2019-08-05 04:02 | NUR ---
PT PROVIDED WITH ORANGE JUICE PER REQUEST. TELE IN PLACE. NO S/S OF DISTRESS AT THIS TIME. WILL CONTINUE TO MONITOR.
[2019-08-05 05:45] LABS: ALBUMIN 2.7 g/dL (3.2-5.0); BILIRUBIN, TOTAL 1.5 mg/dL (0.0-1.4); CREATININE 2.1 mg/dL (0.7-1.3); POTASSIUM 2.9 mmol/l (3.5-5.1); TOTAL PROTEIN 5.7 g/dL (6.3-8.2)
--- NOTE | 2019-08-05 07:05 | NUR ---
REPORT RECEIVED FROM NIAY DUVAL;PT APPEARS TO BE SLEEPING IN SEMI FOWLERS POSITION;NO S/S OF DISTRESS NOTED;RESPIRATIONS EVEN AND UNLABORED ON O2 @ 2L VIA NC;TELE MONITORING IN PLACE;ACCUCHECK 125,NO COVERAGE NEEDED AT THIS TIME;MEYER CATHETER PATENT DRAINING TO GRAVITY WITH EASE;ALL SAFETY PRECAUTIONS IN PLACE WITH BED IN THE LOWEST POSITION AND CALL LIGHT IN REACH;WILL CONTINUE TO MONITOR
--- NOTE | 2019-08-05 07:50 | NUR ---
PT RESTING IN SEMI FOWLERS POSITION,A&O X3;VS OBTAINED AND ASSESSMENT COMPLETED;PT DENIES ANY CURRENT PAIN OR DISCOMFORTS,PAIN SCALE AND REPORTING EDUCATED;RESPIRATIONS SHALLOW ON O2 @ 3L VIA NC,DIMINISHED LUNG SOUNDS NOTED;ABDOMEN SOFT ON PALPATION AND ACTIVE IN ALL 4 QUADRANTS;MEYER CATHETER PATENT DRAINING TO GRAVITY WITH EASE;WEAK PEDAL PULSES WITH +3 BLE EDEMA NOTED,ENCOURAGED ELEVATION OF BLE;WHEEPING AREA NOTED TO RLE WITH WOUND NOTED.SITE CLEANSED AND DRESSED WITH TELFA,ABD PAD AND KERLEX.PHOTOGRAPH OBTAINED AND PLACED IN CHART;#20G TO RAC FLUSHED AND PATENT,SITE APPEARS HEALTHY;PT EDUCATED ON SITE EXPIRATION DATE AND REFUSES SITE CHANGE AT THIS TIME;TELE MONITORING IN PLACE;PT ASSISTED TO RECLINER WITH X2 PERSON ASSIST AND BREAKFAST TRAY PROVIDED;PT DENIES ANY ADDITIONAL NEEDS AT THIS TIME AND IS ENCOURAGED TO CALL FOR ASSISTANCE IF NEEDED;FALL PRECAUTIONS IN PLACE WITH CALL LIGHT IN REACH;WILL CONTINUE TO MONITOR
--- NOTE | 2019-08-05 09:15 | NUR ---
PT RESTING IN RECLINER REPORTING BLE ACHING RATING 8/10 ON THE PAIN SCALE AND "BEING COLD".PT TEMP RE-CHECKED AT 100.5;PT REFUSES TO REMOVE BLANKETS OR LOWER AC;PT MEDICATED WITH PRN TYLENOL 650MG PO AT THIS TIME;ACCUCHECK OBTAINED RESULTING IN 126, SCHEDULED LEVEMIR ADMINISTERED;PT DENIES ANY ADDITIONAL NEEDS AT THIS TIME AND IS ENCOURAGED TO CALL FOR ASSISTANCE IF NEEDED;FALL PRECAUTIONS REMAIN IN PLACE WITH CALL LIGHT IN REACH;WILL CONTINUE TO MONITOR
--- NOTE | 2019-08-05 11:02 | NUR ---
AT BEDSIDE DISCUSSING POC WITH PT.
--- NOTE | 2019-08-05 12:10 | NUR ---
PT OOB RESTING IN RECLINER;RESPIRATIONS REMAIN SHALLOW ON O2 @ 3L VIA NC;PT REQUESTS TO GET BACK INTO BED, WITH X2 PERSON MAX ASSIST PT REPOSITIONED INTO SEMI FOWLERS POSITION.PT MAX CARE,REFUSING TO HELP WITH AMBULATION ASSISTANCE;RESPIRATIONS REMAIN SHALLOW AND PT REPORTS "TROUBLE BREATHING" O2 SATS @ 98% ON 3L VIA NC;AFTER A FEW MINS OF PURSED LIP BREATHING PT REPORTS BREATHING HAS NORMALIZED;IV ABX ADMINISTERED AT THIS TIME;MEYER CATHETER REMAINS PATENT DRAINING TO GRAVITY WITH EASE;PT DENIES ANY ADDITIONAL NEEDS AT THIS TIME;FALL PRECAUTIONS REMAIN IN PLACE WITH CALL LIGHT IN REACH;WILL CONTINUE TO MONITOR
--- NOTE | 2019-08-05 13:07 | NUR ---
PT AT BEDSIDE WORKING WITH PT.
--- NOTE | 2019-08-05 13:16 | NUR ---
PT note Patient is seen for evaluation and functional assessment. Am PAc is 8 and this verifies that he would do well in IRF type facility for extensive rehab as this patient was ambulatory a short time ago. He is limited by cardiac functiona and by pain the bilateral feet as well as edema He lives in [place] and wishes to return to [facility]
--- NOTE | 2019-08-05 15:30 | NUR ---
PT RESTING IN SEMI FOWLERS POSITION;RESPIRATIONS REMAIN SHALLOW ON O2 @ 3L VIA NC;PT DENIES ANY CURRENT PAIN OR NEEDS;TELE MONITORING IN PLACE;IV SITE PATENT AND PT CONTINUES TO REFUSE SITE CHANGE AT THIS TIME;PT DENIES ANY ADDITIONAL NEEDS AND IS ENCOURAGED TO CALL FOR ASSISTANCE IF NEEDED;CALL LIGHT IN REACH;WILL CONTINUE TO MONITOR
--- NOTE | 2019-08-05 15:37 | NUR ---
Called Dr Mg office to schedule consultation for PT. Left voice mail that a consultaion needed to be scheduled and the Med Surg call back number.
--- NOTE | 2019-08-05 16:35 | NUR ---
PHYSICAL AND OCCUPATIONAL THERAPY AT BEDSIDE
[2019-08-06] VITALS (28 sets, daily range): BP systolic 57–115; BP diastolic 30–71
--- NOTE | 2019-08-06 04:00 | NUR ---
PATIENT POSITIONED ON HIS SIDE WITH HOB ELEVATED. O2 VIA NASAL CANNULA IN PLACE. TELE MONITOR IN PLACE. MEYER PATENT AND DRAINING ELLOW URINE. CALL LIGHT IN REACH. WILL CONT TO MONITOR.
--- NOTE | 2019-08-06 07:10 | NUR ---
REPORT RECEIVED FROM NIYA CARL;PT APPEARS TO BE SLEEPING IN SEMI FOWLERS POSITION;RESPIRATIONS EVEN AND UNLABORED ON O2 @ 3L VIA NC;NO S/S OF DISTRESS NOTED;TELE MONITORING IN PLACE;MEYER CATHETER PATENT DRAINING TO GRAVITY WITH EASE;ALL SAFETY PRECAUTIONS IN PLACE WITH BED IN THE LOWEST POSITION AND CALL LIGHT IN REACH;WILL CONTINUE TO MONITOR
[2019-08-06 08:03] LABS: CREATININE 2.4 mg/dL (0.7-1.3); MAGNESIUM 1.9 mg/dL (1.6-2.3); POTASSIUM 3.4 mmol/l (3.5-5.1)
--- NOTE | 2019-08-06 08:45 | NUR ---
PT RESTING AT BEDSIDE,A&O X3;VS OBTAINED AND ASSESSMENT COMPLETED;PT REPORTS ACHING TO BLE AND REQUESTS PAIN MEDICATION,PT TO BE MEDICATED WITH PRN TYLENOL 650MG PO;RESPIRATIONS REMAIN SHALLOW ON O2 @ 3L VIA NC;PT DID HAVE MODERATE NOSE BLEED PRIOR TO VS,HUMIDIFID OXYGEN PRVIDED;ABDOMEN SOFT ON PALPATION AND ACTIVE IN ALL 4 QUADRANTS;MEYER CATHETER PATENT DRAINING TO GRAVITY WITH EASE;WEAK PEDAL PULSES WITH +2 BLE,BOTH LEGS WRAPPED WITH JORGE WRAPS;#20G TO RAC FLUSHED AND PATENT, PT EDUCATED ON EXPIRATION DATE AND REFUSES SITE CHANGE AT THIS TIME;ACCUCHECK 100 AFTER BREAKFAST,ANRP NOTIFIED AND ORDER HOLD MORNING LEVEMIR OBTAINED;PT DENIES ANY ADDITIONAL NEEDS AND IS ENCOURAGED TO CALL FOR ASSISTANCE IF NEEDED;CALL LIGHT IN REACH;WILL CONTINUE TO MONITOR
--- NOTE | 2019-08-06 09:52 | NUR ---
AT BEDSIDE DISCUSSING POC WITH PT.
--- NOTE | 2019-08-06 10:02 | NUR ---
AT BEDSIDE DISCUSSING POC.
--- NOTE | 2019-08-06 10:04 | NUR ---
Called [facility] Rom placed order for P500 mattress Spoke to [employer] woody conformation #[id number]
--- NOTE | 2019-08-06 10:40 | NUR ---
PT RESTING AT BEDSIDE,A&O X3; VS OBTAINED BY JANES NGUYEN BP 70'S/50'S, PT REMAINS ASYMPTOMATIC AT THIS TIME; NOTIFIED;PT PLACED IN [place] POSITION AND RE-POSITIONED IN BED WITH X3 PERSON ASSIST;PT REPORTS BLE PAIN HAS DECREASED SINCE TYLENOL ADMINISTRATION. @1050: BP RE-CHECK 84/49, NOTIFIED AT THIS TIME.NO NEW ORDERS RECEIVED, PER MD "MONITOR BLOOD PRESSURE";CALL LIGHT IN REACH;WILL CONTINUE TO MONITOR
--- NOTE | 2019-08-06 12:20 | NUR ---
PT RESTING IN SEMI FOWLERS POSITION AT THIS TIME PER ;PT REMAINS A&O X3, DROWSY;PT DENIES ANY CURRENT PAIN OR DISCOMFORTS,PAIN SCALE AND REPORTING EDUCATED;RESPIRATIONS REMAIN SHALLOW ON O2 @ 3L VIA NC;IV SITE PATENT;TELE MONITORING IN PLACE;BP REMAINS 80'S/50'S WHEN CHECKED MANUALLY AND WITH BP MACHINE;MEYER CATHETER PATENT;ANRP AND BOTH AWARE,NO NEW ORDERS AT THIS TIME;PT DENIES ANY ADDITIONAL NEEDS AND IS ENCOURAGED TO CALL FOR ASSISTANCE IF NEEDED;CALL LIGHT IN REACH;WILL CONTINUE TO MONITOR
--- NOTE | 2019-08-06 14:20 | NUR ---
PT RESTING IN SEMI FOWLERS POSITION,REPORTS WEAKNESS AND NAUSEA;PT TRANSPORTED TO AIR MATTRESS WITH X4 PERSON ASSIST AND TOLERATED WELL;ZOFRAN 4MG IVP TO BE ADMINISTERED PER ORDER;IV SITE REMAINS PATENT;TELE MONITORING IN PLACE;RESPIRATIONS EVEN AND UNLABORED ON O2 @ 3L VIA NC;CURRENT BP 107/30, PURVI GOMEZ NOTIFIED AND NO NEW ORDERS RECEIVED;PT ASSISTED TO SITTING POSITION ON BEDSIDE PER REQUEST;PT DENIES ANY ADDITIONAL NEEDS AT THIS TIME;ENCOURAGED TO CALL FOR ASSISTANCE WITH ANY CONCERNS OR NEEDS;FALL PRECAUTONS REMAIN IN PLACE WITH BED IN THE LOWEST POSITION AND CALL LIGHT IN REACH;WILL CONTINUE TO MONITOR CLOSELY.
--- NOTE | 2019-08-06 14:55 | NUR ---
PT TRANSFERRED FROM [facility] TO ICU4 VIA HOSPITAL BED. BEDSIDE REPORT RECEIVED FROM FLY. CARE RESUMED PT STABLE. ON NC. NO DISTRESS NOTED. NO SOB NOTED. PT DENIES PAIN/CHEST PAIN AT THIS TIME. BP 111/59. PT ALERT AND ORITENED TO SELF, PLACE, SITUATION AND TIME. DENIES ANY NEEDS AT THIS TIME. PT PLACED ON MONITOR. PT NOTED TO HAVE EDEMA ON LOWER EXTREMITIES. EDUCATED PATIENT ON ICU TRANSFER. CALL LIGHT, FALL RISK. WILL CONTINUE TO MONITOR.
--- NOTE | 2019-08-06 14:55 | NUR ---
REPORT GIVEN TO NIYA MURILLO;PT EDUCATED ON ICU TRANSFER PER ORDER AND VERBALIZES UNDERSTANDING;PT TRANSPORTED TO ICU BED 4 AT THIS TIME VIA HOSPITAL BED IN STABLE CONDITION ACCOMPANIED BY ELEANOR AND JANES CAMPOS;CARE RELINQUISHED AT THIS TIME.
--- NOTE | 2019-08-06 15:50 | NUR ---
PT COMPLAINIG OF SORE/ACHING NECK. TYLENOL GIVEN. PT STATES HE IS COLD. WARM BLANKETS GIVEN AND COVERED PATIENT.
--- NOTE | 2019-08-06 16:57 | NUR ---
PT RESTING IN BED. NO DISTRESS NOTED. HEAT PACK PLACED ON NECK FOR PATIENT COMFORT. WILL CONTINUE TO MONITOR.
--- NOTE | 2019-08-06 17:36 | NUR ---
PT SITTING AT THE SIDE OF THE BED TO EAT DINNER. NO DISTRESS NOTED.
--- NOTE | 2019-08-06 18:31 | NUR ---
PT BACK IN BED AFTER DINNER. LEFT ELBOW DRESSING CHANGED. PT NOTED TO HAVE DRY BLOOD IN NOSE FROM OXYGEN. PT PLACED ON HUMITIFIED OXYGEN. PT NOTED TO COUGH UP FLEM INTO TISSUE. NEW HEAT PACK PLACED ON NECK FOR PATIENT COMFORT. VOIDING VIA MEYER. LEGS ELEVTAED. DENIES ANY OTHER NEEDS AT THIS TIME. REPORT TO BE GIVEN TO NIGHT NURSE
--- NOTE | 2019-08-06 18:41 | NUR ---
SPOKE TO EX ISSACRA. PATEL FROM PT TO GIVE HER INFORMATION AND PASSCODE. UPDATED HER ON REASON PATIENT WAS TRANSFERRED TO ICU. ALL QUESTIONS ANSWERED. PORTABLE PHONE GIVEN TO PATIENT TO SPEAK TO ISSAC
--- NOTE | 2019-08-06 18:50 | NUR ---
RECEIVED REPORT FROM NIYA KIM. HAS NONPRODUCTIVE COUGH. PORT HL. DENIES PAIN. STATES BREATHING BETTER SINCE A LITER OF FLUIDS REMOVED
--- NOTE | 2019-08-06 19:30 | NUR ---
RESTING IN BED. AWAKE, ALERT AND ORIENTED. APPROPRIATE RESPONSES TO QUESTIONS. RESP SHALLOW, NON-LABORED AT REST. O2 ON AT 3 L NC. O2 SAT 100% BREATH SOUNDS DIMINISHED THROUGHOUT. ABD SOFT WITH ACTIVE BOWEL SOUNDS. MEYER DRAINS CLEAR YELLOW URINE. KERLIX WRAP TO LEFT ELBOW AND RLE. 3-4+ PITTING EDEMA OF RLE AND 2+ OF LLE. SALINE LOCK IN RAC, FLUSHED AND PATENT. MONITOR PACED RHYTHM. DISCUSSED PLAN OF CARE. DENIES NEEDS AT THIS TIME. CALL HARTMAN IN REACH.
--- NOTE | 2019-08-06 20:00 | NUR ---
SPOKE WITH PATIENT DAUGHTERS JOSSE AND WAYNE, BOTH HAD PATIENT CODE FOR INFORMATION. UPDATED ON PATIENT CONDITION. PATIENT HAS PORTABLE PHONE AND CALLS TRANSFERRED TO HIM.
--- NOTE | 2019-08-06 21:00 | NUR ---
CONFIRMED WITH DR TANA ASH AND BUMEX ORDERS.
--- NOTE | 2019-08-06 21:00 | NUR ---
ACCUC HECK 280, COVERED PER SS PROTOCOL. OFFERED PATIENT HS SNACK, TOOK CARTON OF APPLE JUICE.
--- NOTE | 2019-08-06 22:00 | NUR ---
DOZES ON AND OFF, AWAKENS EASILY TO NAME. VSS.
[2019-08-07] VITALS (25 sets, daily range): BP systolic 96–125; BP diastolic 56–65
--- NOTE | 2019-08-07 00:05 | NUR ---
VSS. RESP SHALLOW, NON-LABORED. O2 SAT 100% ON 3L NC. PACED RHYTHM ON MONITOR. SALINE LOCK FLUSHED AND PATENT WITH GOOD BLOOD RETURN. SONATA 5 MG PO GIVEN FOR SLEEP PER PATIENT REQUEST. OFFERED TO ASSIST PATIENT TO TURN TO SIDE, HE REFUSES, STATING "I AM COMFORTABLE JUST HOW I AM."
--- NOTE | 2019-08-07 03:00 | NUR ---
ASSISTED PATIENT TO REPOSITION TO SIDE. LIFT SHEET AND CHUX CHANGED. VDD. NO CHANGES TO REPORT.
--- NOTE | 2019-08-07 04:11 | NUR ---
TYLENOL 650 MG PO FOR C/O LEGS ACHING. REPOSITONED WITH ASSIST.
[2019-08-07 05:58] LABS: HEMATOCRIT 24.4 % (39.0-50.0); HEMOGLOBIN 7.5 g/dl (14.0-18.0); MEAN CELL VOLUME 96.8 fL CALC (80.0-100.0); MEAN CORPUSCULAR HGB 29.8 pG CALC (26.0-32.0); MEAN CORPUSCULAR HGB CONC 30.7 g/dL CAL (32.0-36.0); RED BLOOD COUNT 2.52 mill/uL (4.70-6.10); RED CELL DISTRI WIDTH 16.2 % (11.5-15.5)
--- NOTE | 2019-08-07 06:00 | NUR ---
UNABLE TO FLUSH SALINE LOCK IN RAC, DC'D WITH CATHETER INTACT. NEW SALINE LOCK STARTED, #22 IN RW X1 ATTEMPT. PATIENT SLEPT ON AND OFF DURING THE NIGHT.
[2019-08-07 06:15] LABS: ALBUMIN 2.6 g/dL (3.2-5.0); BILIRUBIN, TOTAL 1.2 mg/dL (0.0-1.4); CREATININE 2.8 mg/dL (0.7-1.3); MAGNESIUM 1.9 mg/dL (1.6-2.3); POTASSIUM 3.7 mmol/l (3.5-5.1); TOTAL PROTEIN 5.6 g/dL (6.3-8.2)
--- NOTE | 2019-08-07 07:00 | NUR ---
REPORT RECEIVED FROM OUTGOING NURSE, PT IN BED RESTING AT THIS TIME. VSS ON THE MONITOR, PT AFEBRIL, ALERT AND ORIENTED X3.
--- NOTE | 2019-08-07 09:00 | NUR ---
DR FAJARDO AT BEDSIDE, ORDER FOR 1 UNIT OF BLOOD PLACED DUE TO HGB RESULT THIS AM.
--- NOTE | 2019-08-07 10:53 | NUR ---
ANTONIO WITH DIETARY AT BEDSIDE.
--- NOTE | 2019-08-07 11:55 | NUR ---
1 UNIT OF BLOOD STARTED PER MD ORDERS.
--- NOTE | 2019-08-07 12:53 | NUR ---
PT DAUGHTER WAYNE CALLED WITH CODE, UPDATE GIVEN. PT THEN SPOKE WITH HER ON PERSONAL CELL PHONE. PT SITTING UP IN BED, DRINKING GLUCERNA SHAKE. CALL LIGHT IN REACH. WILL MONITOR.
--- NOTE | 2019-08-07 13:30 | NUR ---
BLOOD TRANSFUSION COMPLETE, VSS
--- NOTE | 2019-08-07 14:24 | NUR ---
08/06/19 PT note Patient held due to low BP. Not appropriate for therapy at this time
--- NOTE | 2019-08-07 16:00 | NUR ---
DR FAJARDO CALLED FOR PAIN UNRELIEVED BY TYLENOL. ORDER FOR TRAMADOL RECEIVED.
--- NOTE | 2019-08-07 16:15 | NUR ---
ZOFRAN AND ULTRAM GIVEN FOR PAIN AND NAUSEA.
--- NOTE | 2019-08-07 17:17 | NUR ---
650MG TYLENOL TABS PO FOR UNRELIEVED PAIN. REPOSITIONED PATIENT WELL.
--- NOTE | 2019-08-07 18:00 | NUR ---
PT REPOSITIONED IN THE BED, PAIN RELIEVED AT THIS TIME. WILL CONTINUE TO MONITOR.
--- NOTE | 2019-08-07 19:20 | NUR ---
PATIENT AWAKENS EASILY WHEN SPOKEN TO, ORIENTED X4. ON 2.5 L/MIN NC, TITRATED TO 2 L/MIN. SATS 99%. PT REQUESTS TO HAVE HIS TOMATO SOUP POURED INTO A CUP SO HE CAN DRINK IT, PT HOB ELEVATED TO EAT HIS DINNER, HE C/O OF NOT FEELING COMFORTABLE EATING IN BED. SO I ASSISTED HIM TO SIT UP ON SIDE OF BED, REPORTS "MUCH BETTER." NURSING ASSESSMENT PERFORMED. IV X1 INTACT, FLUSHES PROPERLY. TEMP 99.0. PACED ON TELEMETRY. MEYER CATHETER INTACT. POC FOR TONIGHT DISCUSSED. REQUESTS TO HAVE DRESSING ON BLE TO BE TAKEN OFF TONIGHT, PT EDUCATED ON THAT THEY HELP REDUCE SWELLING, PT UNDERSTANDS AND REPORTS HE CAN HAVE THEM PLACED BACK ON TOMORROW. DRESSINGS ON L-ELBOW AND R-PENN AREA FALLING OFF, WILL CHANGE BY END OF SHIFT, MEPILEX BORDER INTACT ON BUTTOCKS. PT EDUCATED ON PAIN MEDICATION AVAILABLE, REPORTS IT MADE HIM SLEEP ALL EVENING. HEELS ELEVATED WITH PILLOWS, AIR MATTRESS INTACT. CALL LIGHT WITHIN REACH.
--- NOTE | 2019-08-07 20:40 | NUR ---
PATIENT ASSISTED BACK IN BED X2, REPOSITIONED. HEELS ELEVATED. AIR MATRESS INTACT. HOB ELEVTAED. ATE ALL HIS DINNER AND DRANK FLUIDS. CALL LIGHT WITHIN REACH.
--- NOTE | 2019-08-07 21:19 | NUR ---
PATIENT TOLERATES PO MEDICATIONS, AGREES WITH RECEIVING TYLENOL AND SLEEPING MED WHEN DUE. NO ACUTE DISTRESS SHOWN. NO OTHER NEEDS, CALL LIGHT WITHIN REACH.
[2019-08-08] VITALS (15 sets, daily range): BP systolic 96–120; BP diastolic 58–69
--- NOTE | 2019-08-08 00:10 | NUR ---
PT RESTS WITH EYES CLOSED. NO ACUTE DISTRESS SHOWN. CALL LIGHT WITHIN REACH.
--- NOTE | 2019-08-08 00:30 | NUR ---
BLOOD DRAWN FOR TROPONIN DUE, PT TOLERATES WELL. NO ACUTE DISTRESS SHWON. AFEBRILE. 97.0 DEGREES F. NOW RESTS WTH EYES CLOSED. CALL LIGHT WITHIN REACH.
--- NOTE | 2019-08-08 04:39 | NUR ---
LAB IN ROOM TO GET BLOOD WORK. NO ACUTE DISTRES SSHOWN. CALL LIGHT WITHIN REACH.
[2019-08-08 04:45] LABS: HEMATOCRIT 27.4 % (39.0-50.0); HEMOGLOBIN 8.5 g/dl (14.0-18.0); MEAN CELL VOLUME 95.1 fL CALC (80.0-100.0); MEAN CORPUSCULAR HGB 29.5 pG CALC (26.0-32.0); RED BLOOD COUNT 2.88 mill/uL (4.70-6.10); RED CELL DISTRI WIDTH 17.7 % (11.5-15.5)
--- NOTE | 2019-08-08 05:24 | NUR ---
L-ELBOW AND R-MEDIAL PENN DRESSINGS CHANGED, APPLIED NONADEHERENT PAD, AND GAUZE WRAP, CLEANED AREA FIRST, PT TOLERATED WELL. BETSY [place]OOK. PT IS AWAKE WATCHING TV, NO ACUTE DISTRESS SHOWN. BLE ELEVATED WITH PILLOWS. PT DESIRES TO STICK HIS R-LEG TO HANG ON SIDE OF BED AT THIS TIME. CALL LIGHT WITHIN REACH.
--- NOTE | 2019-08-08 07:39 | NUR ---
REPORT RECEIVED FROM OUTGOING NURSE. PT RESTING IN BED WATCHING MORNING NEWS, ALERT AND ORIENTED X3, MOVES ALL EXTREMITIES, TEMP OF 98.0, PT DENIES PAIN OR DISCOMFORT AT THIS TIME. ALL VSS- SEE PROCESS INTERVENTIONS FOR FULL ASSESSMENT.
--- NOTE | 2019-08-08 08:00 | NUR ---
PT UP TO SIDE OF THE BED TO EAT BREAKFAST.
--- NOTE | 2019-08-08 08:30 | NUR ---
JADA WITH CASE MANAGEMENT AT BEDSIDE.
--- NOTE | 2019-08-08 09:17 | NUR ---
DR FAJARDO AT BEDSIDE, DISCUSSED PLAN OF CARE WITH PT.
--- NOTE | 2019-08-08 10:00 | NUR ---
PT REPOSITIONED IN BED, LEFT LOWER LEG WRAPED WITH 4X4 GAUZE AND WRAP.
--- NOTE | 2019-08-08 12:00 | NUR ---
PT RESTING IN BED, DENIES PAIN OR DISCOMFORT AT THIS TIME, ALERT AND ORIENTEDX3, AFEBRILE. SEE PROCESS INTERVENTIONS FOR FULL ASSESSMENT.
--- NOTE | 2019-08-08 13:23 | NUR ---
08/07/19 PT note Patient transferred to ICU due to low BP. He has improved when I checked on him with BP 106/60. He has improved LE edeam as well and is not weeping as much. Worked with nursing to wrap his LEs to the knee with light compression and 5 inch brent wrap. He is then position EOB and attempted to stand x 2 . His transition to EOB was mod max assist of 1. Attempts at sit to stand were total dae and it was not recommended that he SPT to bedside chair due to extreme weakness. He was transferred to supine with mod maax assist of 1 limited by fatigue.
--- NOTE | 2019-08-08 13:36 | NUR ---
PT AND OT AT BEDSIDE
--- NOTE | 2019-08-08 13:55 | NUR ---
PROME-AAROME ON BLE X 10 REPS X 1 SET ON EACH MOTIONS: KNEE FLEXION-EXTENSION, HIP FLEXION, HIP ABDUCTION-ADDUCTION, ANKLE DF-PF. TO MAINTAIN JOINT MOBILITY AND MUSCLE FLEXIBILITY. BED TURNING TO PREVENT PRESSURE SORE ON HEELS, SACRUM, AND OTHER BONY PROMINENCE. CO-TREATED WITH MA. MARTHA GONZALEZ DPT AMPAC = 6
--- NOTE | 2019-08-08 14:00 | NUR ---
PT RESTING IN BED WATCHING TV. ALL VSS AT THIS TIME, WILL CONTINUE TO MONITOR.
--- NOTE | 2019-08-08 16:01 | NUR ---
PT RESTING IN BED, REPOSITIONED FOR COMFORT.
--- NOTE | 2019-08-08 18:00 | NUR ---
PT RESTING IN BED EATING DINNER, DENIES PAIN OR DISCOMFORT AT THIS TIME.
--- NOTE | 2019-08-08 19:15 | NUR ---
PT HOLLERS OUT, "HEY, MY LEGS WERE FALLING OFF THE BED." WAS RESTLESS FLINGING HIS ARMS AROUND IN BED. PT WAS ASSISTED AND GIVEN VERBAL CUES TO CALM DOWN. PT IS ALERT AND ORIENTED X4. ON 1.5 L/MIN NC AND SATS 99%. NURSING ASSESSMENT PERFORMED. RAC IV INTACT. AFEBRILE. LEGS ELEVEVATED WITH PILLOWS. MEYER CATHETER INTCAT, DRAINS YELOOW/CLOUDY URINE. AIR MATRESS ON. POC FOR TONIGHT DISCUSSED. PT NEEDS REINFORCEMENT. CALL LIGHT WITHIN REACH.
--- NOTE | 2019-08-08 20:16 | NUR ---
PT OUTSIDE PARTS SALESMAN LIGHT, REPORTS, "MY BUTT IS ON FIRE." ASSISTED TO PLACE A PILLOW ON LEFT BUTTOCKS, PT ABLE TO PARTICIPATE BUT IS WEAK. ASKS FOR "SOMETHING TO DRINK," I OFFERED HIM WATER ON HIS SIDE TABLE AND HE REFUSED, PT KNOWS HE SHOULD BE RESTRICTING FLUIDS DUE TO BEING DIURESED WITH IV BUMEX. CALL LIGHT WITHIN REACH.
--- NOTE | 2019-08-08 21:20 | NUR ---
PT CHECKER STOCKER LIGHT DUE TO HE C/O NAUSEA. PT WAS TALKING ON HIS CELLPHONE AND AFTER HE WAS DONE WITH TALKING ON THE CPHONE, HE PRESSES CHECKER STOCKER LIGHT AND REPORTS HE IS NAUSEAUS, "I NEED A BARF BAG." PT REPORTS HE WAS NAUSEAS BECAUSE HE GOT UPSET AFTER TALKING TO SOMEONE ON THE PHONE. PT WAS REASSURED AND LOWLY CALMED DOWN. ACCUCHECK WAS OBTAINED, ALL BEDTIME MEDS GIVEN WELL ZOFRAN. PT TOLERATED WELL. SONATA FOR SLEEP GIVEN PER REQUEST, REFUSES PAIN MEDIACTIION AT THIS TIME. PT AGREES TO GET WASHED UP AND SHAVED.
--- NOTE | 2019-08-08 22:12 | NUR ---
PATIENT WAS WASHED UP WITH ASSIST X2. BED LINENS CHANGED. L-ELBOW DRESSING CHANGED. R-PENN DRESSING INTACT. BLE ELAVTED WITH PILLOWS. PT PLACED ON LEFT SIDE. R-ARM ELEVATED WITH PILLOWS. PT BECAME SOB WITH EXERTION. PT WAS ALSO SHAVED. PT NOW RESTS AND WARM BLANKET PROVIDED. CALL LIGHT WITHIN REACH.
--- NOTE | 2019-08-08 23:34 | NUR ---
PT ASSOCIATE MATERIAL HANDLER LIGHT, REQUESTS PAIN MEDICATION FOR PAIN ON HIS BUTTOCKS, RATES 8/10.
[2019-08-09] VITALS (18 sets, daily range): BP systolic 101–140; BP diastolic 50–74
--- NOTE | 2019-08-09 01:07 | NUR ---
PT OFFICE RENTAL CLERK LIGHT DUE TO HE C/O HE IS THIRSTY, WATER WAS PROVIDED. ALSO C/O OF UNCOMFORTABLENESS. PT WAS REPOSITIONED, REQUESTS FOR BLANKETS TO BE PULLED OF EXCEPT FOR ONE. REQUESTS ICED WATER, PROVIDED. HEAD ADJUSTED PER REQUEST.
--- NOTE | 2019-08-09 04:27 | NUR ---
PT IS AWAKE, TURNED HIS LIGHT ON. NO NEEDS AT THIS TIME. CALL LIGHT WITHIN REACH.
--- NOTE | 2019-08-09 04:40 | NUR ---
HORIZONTAL DRILL OPERATOR IN ROOM FOR AM LABS TO BE DRAWN.
--- NOTE | 2019-08-09 04:57 | NUR ---
PT REQUESTS WATER, ASSISTED WITH GIVING HIM HIS WATER, PROVIDED TYLENOL FOR "BODY PAIN," PT REQUESTS MORE JUICE TO DRINK, JUICE GIVEN TO SWALLOW TYLENOL, PT EDUCATED ON FLUID INTAKE, PT NEEDS REINFORCEMENT.
[2019-08-09 05:12] LABS: MAGNESIUM 2.2 mg/dL (1.6-2.3)
--- NOTE | 2019-08-09 05:37 | NUR ---
PT REPSOITIONED, PLACED ON HIS RIGHT SIDE. MO OTHER NEEDS AT THIS TIME. CALL LIGHT WITHIN REACH.
--- NOTE | 2019-08-09 06:01 | NUR ---
DR FAJARDO NOTIFIED OF PATIENT'S CRITICAL HIGH BUN THIS AM 83, NO NEW ORDERS RECEIVED.
--- NOTE | 2019-08-09 07:00 | NUR ---
REPORT RECEIVED FROM NIYA DARLING. PT RESTING IN BED SEMI FOWLERS WITH EYES CLOSED AND NO SIGNS OF DISTRESS. RESPIRATIONS EVEN AND UNLABORED ON OXYGEN 1L VIA NC. VSS. PACED ON TELEMETRY. SAFETY MEASURES IN PLACE. CALL LIGHT WITHIN REACH.
--- NOTE | 2019-08-09 08:01 | NUR ---
PT ASSISTED TO SITTING POSITION ON EDGE OF BED FOR BREAKFAST. ALERT AND ORIENTED. FACIAL GRIMACING WITH MOVEMENT; PT C/O SOME PAIN TO BLE AND NECK. OXYGEN REMOVED; PT NOW ON ROOM AIR; SPO2 92-93%. LUNGS ARE CLEAR THROUGHOUT. 2+ PITTING EDEMA TO ALL EXTREMTIIES. DRESSING TO LEFT ELBOW WITH MODERATE BLOODY DRAINAGE; DRESSING TO RLE CDI. IV SITE APPEARS HEALTHY AND FLUSHES. AFEBRILE. ACCU CHECK 145. CALL LIGHT WITHIN REACH.
--- NOTE | 2019-08-09 08:48 | NUR ---
PT AT BEDSIDE. PT MAX 2 PERSON ASSIST.
--- NOTE | 2019-08-09 09:00 | NUR ---
1L OF OXYGEN VIA NC REAPPLIED; SPO2 DECREASED WITH EXERTION. NOW 96-97% ON 1L.
--- NOTE | 2019-08-09 09:31 | NUR ---
Pt seen this am. He was supine with legs elevated, heels off loaded. Pt performed A/AAROm x 15 reps to all extremities, isometric quad and glut sets x 20 reps. Pt stated he just got comfortable and refused sitting over edge of bed. Pt encouraged to ex extremities as tolerated. AM-PAC unchanged.
--- NOTE | 2019-08-09 09:35 | NUR ---
PT DECLINED BLOOD PRESSURE MEDICATIONS; BP 107/58. BUMEX GIVEN. PT AWAKE TALKING TO EX ON HIS CELL PHONE.
--- NOTE | 2019-08-09 09:46 | NUR ---
PT STOOD AT BEDSIDE WITH MAX ASSIST; BED ZEROED WITH ALL EQUIPMENT ON; PT WEIGHT CURRENTLY 240 LBS.
--- NOTE | 2019-08-09 10:00 | NUR ---
CASE MANAGEMENT AT BEDSIDE TO DISCUSS PLACEMENT OPTIONS.
--- NOTE | 2019-08-09 10:04 | NUR ---
EX UPDATED VIA TELEPHONE. QUESTIONS ANSWERED TO SATISFACTION.
--- NOTE | 2019-08-09 10:20 | NUR ---
DR. FAJARDO AT BEDSIDE.
--- NOTE | 2019-08-09 11:15 | NUR ---
DRESSINGS TO RIGHT CALF, LEFT CALF, AND LEFT ELBOW CHANGED; TELFA AND KERLEX APPLIED. PHOTOS OF WOUNDS PLACED IN CHART. PT TOLERATED WELL.
--- NOTE | 2019-08-09 14:35 | NUR ---
PT ASLEEP WITH NO SIGNS OF DISTRESS. RESPIRATIONS EVEN AND UNLABORED ON OXYGEN 1L. ALL EXTREMITIES ELEVATED ON PILLOWS. VSS.
--- NOTE | 2019-08-09 15:25 | NUR ---
PT ASKS FOR BSC FOR BOWEL MOVEMENT; PT UNABLE TO STAND WITH ASSISTANCE. OFFERED BEDPAN AND PT REFUSED.
--- NOTE | 2019-08-09 16:30 | NUR ---
ULTRAM GIVEN FOR NECK AND LOWER EXTREMITY PAIN 09/10. PT PULLED UP IN BED AND ASSISTED WITH REPOSITIONING. NO OTHER REQUESTS OR CONCERNS AT THIS TIME. SAFETY MEASURES IN PLACE. CALL LIGHT WITHIN REACH.
--- NOTE | 2019-08-09 18:42 | NUR ---
PT YELLING ON PHONE WITH STATING THAT HE WANTS "TO SHIT" EXPLAINED THAT WE CANNOT PHYSICALLY LIFT PATIENT. EXPLAINED THAT WE WOULD BE HAPPY TO PLACE ON BED ROSA. PATIENT REFUSED. EXPLAINED TO . SHE VERBALIZED UNDERSTANDING.
--- NOTE | 2019-08-09 19:15 | NUR ---
awake. pt has multiple requests to "get up." instructed pt multi times about physical therapy's inability to get him up today. pt verbalized understanding. #22 rt wrist saline lock. sullivan cath in place. urine cloudy. has multi skin tears with dressings intact. turned & repositioned. requires total care for ALL needs. requires MUCH attention from staff.
--- NOTE | 2019-08-09 20:00 | NUR ---
pt has requested multi times to get to bsc. assisted x2 with MAX ASSISt to bsc. pt has generalized weakness. had small hard stool. checked for impaction. large amt stool felt. oil retention enema given with extra large amt dk brown brown hard stool returned. assisted back to bed WITH MAX ASSIST.
--- NOTE | 2019-08-09 21:00 | NUR ---
sonata 5mg po given for sleep.
[2019-08-10] VITALS (13 sets, daily range): BP systolic 111–134; BP diastolic 57–74
--- NOTE | 2019-08-10 00:01 | NUR ---
eyes closed. no distress. loss prevention associate shows paced rhythm hr 68.
--- NOTE | 2019-08-10 02:00 | NUR ---
resting quietly. resps even & unlabored. no apparent distress. o2 cont.
--- NOTE | 2019-08-10 04:00 | NUR ---
eyes closed. no distress. after school teacher shows paced rhythm hr 68.
--- NOTE | 2019-08-10 05:30 | NUR ---
lab here. blood drawn.
[2019-08-10 05:57] LABS: HEMATOCRIT 27.9 % (39.0-50.0); HEMOGLOBIN 8.7 g/dl (14.0-18.0); MEAN CELL VOLUME 95.2 fL CALC (80.0-100.0); MEAN CORPUSCULAR HGB 29.7 pG CALC (26.0-32.0); MEAN CORPUSCULAR HGB CONC 31.2 g/dL CAL (32.0-36.0); RED BLOOD COUNT 2.93 mill/uL (4.70-6.10); RED CELL DISTRI WIDTH 17.1 % (11.5-15.5)
[2019-08-10 06:29] LABS: CREATININE 2.8 mg/dL (0.7-1.3); MAGNESIUM 2.1 mg/dL (1.6-2.3); POTASSIUM 3.8 mmol/l (3.5-5.1)
--- NOTE | 2019-08-10 07:00 | NUR ---
REPORT RECEIVED FROM NIGHT NURSE. PT RESTING IN BED WITH EYES CLOSED. NO DISTRESS NOTED. WILL CONTINUE TO MONITOR.
--- NOTE | 2019-08-10 08:45 | NUR ---
PT UP IN BED TO EAT BREAKFAST. PT REFUSED FOOD; HOWEVER, DRANK TWO GLUCERNA. PT DENIES PAIN AND SOB AT THIS TIME. NO DISTRESS NOTED. MEYER INTACT. MUSIC TURNED ON PER PATIENT REQUEST FOR COMFORT. WILL CONTINUE TO MONITOR.
--- NOTE | 2019-08-10 08:50 | NUR ---
SPOKE TO EX ISSAC AND UPDATED HER ON PATINET STATUS. ISSAC PROVIDED PATIENT CODE.
--- NOTE | 2019-08-10 09:30 | NUR ---
DR. FAJARDO AT BEDSIDE TO ASSESS PT. DR. FAJARDO NOTIFIED PATIENT REFUSED COREG AND IMDUR. PLAN TO TRANSFER TO [facility] TODAY.
--- NOTE | 2019-08-10 10:16 | NUR ---
PT RESTING IN BED. NO DISTRESS NOTED. PILLOWS FIXED AND PATIENT REPOSITIONED. BLE ELEVATED. PT GIVEN BLANKETS FOR COMFORT. LEFT ELBOW DRESSING CHANGED. WILL CONTINUE TO MONITOR.
--- NOTE | 2019-08-10 11:32 | NUR ---
REPORT GIVEN TO NURSE AARON ON [facility]
--- NOTE | 2019-08-10 12:15 | NUR ---
PT TRANSFERRED TO [facility] ROOM 268. BEDSIDE REPORT GIVEN TO NURSE AARON. PT IN STABLE CONDITION DURING TRANSFER. PT TRANSFERRED VIA HOSPITAL BED, ON OXYGEN AND WITH THIS RN. ALL BELONGINGS SENT WITH PATIENT. PT VERBILZED UNDERSTANDING PF TRANSFER. NO DISTRESS NOTED. MEDICAL CHART AND MEDICATIONS TRANSFERRED WITH PATIENT.
--- NOTE | 2019-08-10 12:38 | NUR ---
PT ARRIVED FROM ICU VIA BED WITH STAFF. O2 @ 1 LITER, MEYER INTACT. AIR MATTRESS IN PLACE. PT IS VERY SLEEPY. CONTINUE TO OBSERVE AND MONITOR.
--- NOTE | 2019-08-10 18:04 | NUR ---
SPOKE WITH PT'S DAUGHTER WAYNE FROM [place], INQUIRED IF PT COULD HAVE MEDICATION TO HELP RELAX HIM, "NOTHING STRONG, HE DOESN'T TOLERATED IT WELL." EXPLAINED ONLY HAS ULTRAM ORDERED . VERBALIZED UNDERSTANDING.
--- NOTE | 2019-08-10 20:38 | NUR ---
PT MEDICATED ORDERS PROVIDE AND ASSESSMENT COMPLETED AT THIS TIME. PT REPOSITIONED, APPEARS UNABLE TO SELF TURN, PT WAS ABLE TO PARTIALLY TURN TO ONE SIDE. 02 ON @2LNC.
--- NOTE | 2019-08-10 21:38 | NUR ---
PT MEDICATED FOR SLEEP/REQUEST. DISCUSSED POC AGAIN W/PT, HE REFUSES BATH STATING "I JUST WANT TO SLEEP." I EXPLAINED TO THE PT THAT HIS ARM WAS BLEEDING/DRESSING NEEDED CHANGED AND HIS BEDDING WAS SOILED W/BLOOD AND WE NEEDED TO CHANGE THOSE. IV ANTIBIOTIC THERAPY ADMINISTERED AT THIS TIME. WHEN ANTIBIOTIC THERAPY COMPLETES AND ASSISTANCE IS AVAILABLE WE WILL ATTEMPT AGAIN TO CHANGE BEDDING, DRESSING TO R.ARM AND PROVIDE PT W/BEDBATH.
--- NOTE | 2019-08-10 23:36 | NUR ---
V/S ASSESSED AND PT MEDICATED W/IV ANTIBIOTIC THERAPY. PT AWAKE, LOC TO SELF AND LOCATION, TALKING ABOUT GOD. PT CALM, DENIES PAIN OR DISTRESS. CALL LIGHT AT SIDE.
--- NOTE | 2019-08-11 03:27 | NUR ---
PT PROVIDED BEDBATH, DRESSING CHANGES TO WOUNDS AND BEDDING CHANGED. PT TOLERATED WELL. PT REPOSITIONED W/PILLOWS. PT EXPERIENCED MILD SOB UPON HOB BEING LOWERED FOR EXTENDED PERIOD. 02 PLACED AND HOB RAISED, PT REPORTED FEELING MUCH BETTER. V/S ASSESSED AT THIS TIME. PT DENIES ANY OTHER NEEDS, PO FLUIDS PROVIDED AT THIS TIME.
[2019-08-11 03:30] VITALS: BP 136/70
[2019-08-11 07:25] VITALS: BP 123/69
--- NOTE | 2019-08-11 07:25 | NUR ---
PT RESTING IN BED, NO SIGNS OF DISTRESS NOTED, RESP EVEN AND UNLABORED. PT ALERT AND ORIENTED X3, PT STATES HE FEELS SOB, VITALS OBTAINED SPO2 99% ON 1L, DISCUSSED POC, AND PLANS FOR PT TO BE WEANED OFF 02 AT THIS TIME, PT STATES HE WANTS TO REMAIN ON 02 AND INCREASED BECAUSE HE FEELS LIKE HE "CAN'T CATCH MY BREATH", INCREASED 02 TO 1.5L. DISCUSSED POC, PT NOTED TO BE TALKING TO "SOMEONE" IN THE ROOM, SAYING "WHOSE THAT?" WHEN ASKED WHO PT IS SPEAKING TO PT STATES "I'M HALLUCINATING". INFORMED PT THAT ONLY PT AND SERVER SECURITY ADMINISTRATOR ARE IN THE ROOM. ASSESSMENT COMPLETED, DRESSINGS TO L ELBOW AND RLE CDI. CALL LIGHT IN REACH,CONTINUE TO MONITOR.
[2019-08-11 09:34] LABS: CREATININE 2.6 mg/dL (0.7-1.3); POTASSIUM 3.6 mmol/l (3.5-5.1)
[2019-08-11] MEDS ORDERED: BUMETANIDE1 MG PO (09:51)
--- NOTE | 2019-08-11 09:55 | NUR ---
PT RESTING IN BED, SEEN BY , PT WANTS TO RETURN TO [facility]. PLANS FOR DISCHARGED DISCUSSED. INFORMED PT OF MEYER REMOVAL, PT AGREES. MEYER REMOVED, CATHETER INTACT. CALL LIGHT IN REACH,CONTINUE TO MONITOR.
[2019-08-11 10:26] VITALS: BP 128/73
--- NOTE | 2019-08-11 11:59 | NUR ---
[facility] ARRIVED, PT DRESSED, IV REMOVED, CATHETER INTACT.
--- NOTE | 2019-08-11 12:04 | NUR ---
Discharge instructions given. Patient verbalizes understanding of same. Discharged in stable condition via Medical Transport to [facility] with staff. All belongings sent with pt.
--- NOTE | 2019-08-11 18:11 | NUR ---
CALLED [facility] REGARDING AIR MATTRESS FOR DISCHARGE. SPOKE TO IOANA AND WAS GIVEN CONFIRMATION [phone].
== END 2019-08-11 12:04 | disposition home or self-care (01) | DRG 291 ==
LOC: ED 10:57 → ED-I 12:21 → ED 12:31 → MS2 12:32 → ICU 14:54 → MS2 08-04 01:19 → ICU 08-06 14:55 → MS2 08-10 12:23
PROVIDERS: Nurse Practitioner Family; ADMIT Internal Medicine; ATTEND Internal Medicine
PROC: 0T9B70Z Drainage of Bladder with Drainage Device, Via Natural or Artificial Opening (ICD-10-PCS; 2019-08-03)
PROC: 30233N1 Transfusion of Nonautologous Red Blood Cells into Peripheral Vein, Percutaneous Approach (ICD-10-PCS; principal; 2019-08-07)
DX: I13.0 Hypertensive heart and chronic kidney disease with heart failure and stage 1 through stage 4 chronic kidney disease, or unspecified chronic kidney disease (principal); I50.23 Acute on chronic systolic (congestive) heart failure; J18.9 Pneumonia, unspecified organism; N18.4 Chronic kidney disease, stage 4 (severe); N17.9 Acute kidney failure, unspecified; I48.20 Chronic atrial fibrillation, unspecified; E11.22 Type 2 diabetes mellitus with diabetic chronic kidney disease; E11.65 Type 2 diabetes mellitus with hyperglycemia; I25.10 Atherosclerotic heart disease of native coronary artery without angina pectoris; E87.5 Hyperkalemia; E11.51 Type 2 diabetes mellitus with diabetic peripheral angiopathy without gangrene; I89.0 Lymphedema, not elsewhere classified; I25.5 Ischemic cardiomyopathy; D63.1 Anemia in chronic kidney disease; E11.69 Type 2 diabetes mellitus with other specified complication; I95.9 Hypotension, unspecified; E87.6 Hypokalemia; E78.5 Hyperlipidemia, unspecified; Z79.01 Long term (current) use of anticoagulants; Z95.1 Presence of aortocoronary bypass graft; Z79.4 Long term (current) use of insulin; Z95.0 Presence of cardiac pacemaker; Z95.820 Peripheral vascular angioplasty status with implants and grafts; Z79.02 Long term (current) use of antithrombotics/antiplatelets; Z20.828 Contact with and (suspected) exposure to other viral communicable diseases
CPT/HCPCS: J0692; P9016